=== PATIENT | male | born 1970 | race Caucasian/White ===

== ENCOUNTER 2021-08-24 15:39 | Inpatient (IN) | payer OTHER ==
[~2021-08-24] VITALS: Ht 182.9 cm; Wt 109.1 kg
[~2021-08-24 15:39] MED LIST: LIDO700A32 TOP; PER10325T PO
[2021-08-24 18:08] LABS: BASOPHILS # (AUTO) 0.1 X10'3 (0-0.2); BASOPHILS % (AUTO) 0.6 % (0-1); EOSINOPHILS % (AUTO) 0 % (0-6); HEMATOCRIT 48.5 % (42.0-52.0); LYMPHOCYTES # (AUTO) 0.5 X10'3 (1.1-4.8); LYMPHOCYTES % (AUTO) 3.1 % (21-51); MEAN CORPUSCULAR HEMOGLOBIN 32.8 PG (27.0-31.0); MEAN CORPUSCULAR VOLUME 93.7 FL (78-98); MEAN PLATELET VOLUME 8.5 FL (7.4-10.4); MONOCYTES # (AUTO) 0.7 X10'3 (0-0.9); MONOCYTES % (AUTO) 4.2 % (2-12); NEUTROPHILS # (AUTO) 15.9 X10'3 (1.8-7.7); NEUTROPHILS % (AUTO) 92.1 % (42-75); PLATELET COUNT 307 X10'3 (140-440); RED BLOOD COUNT 5.18 X10'6 (4.70-6.10); WHITE BLOOD COUNT 17.3 X10'3 (4.5-11.0)
[2021-08-24 18:26] LABS: ALANINE AMINOTRANSFERASE 48 U/L (12-78); ALKALINE PHOSPHATASE 111 IU/L (46-116); ANION GAP 15 (8-16); ASPARTATE AMINO TRANSFERASE 22 U/L (10-37); BILIRUBIN,TOTAL 1.4 MG/DL (0.1-1.0); BLOOD UREA NITROGEN 15 MG/DL (7-18); BUN/CREATININE RATIO 13.9 (5.4-32.0); CALCIUM 9.7 MG/DL (8.5-10.1); CHLORIDE 102 MMOL/L (99-107); CREATININE 1.08 MG/DL (0.60-1.10); GLUCOSE 136 MG/DL (70-104); LIPASE 55 U/L (73-393); POTASSIUM 3.3 MMOL/L (3.5-5.1); SODIUM 139 MMOL/L (135-145); TOTAL CARBON DIOXIDE 22.1 MMOL/L (24-32); TOTAL PROTEIN 8.1 G/DL (6.4-8.2); eGFR 72 ML/MIN
[2021-08-24] MEDS ORDERED: KETAMINE IV ONE (20:05)
[2021-08-24] MEDS ORDERED: HYDROmorphone 1 mg/ml syringe IV ONE (20:05)
[2021-08-24] MEDS ORDERED: NORMAL SALINE IV ONE (20:05)
[2021-08-24] MEDS ORDERED: ondansetron/PF 4mg/2ml inj IV ONE (20:05)
[2021-08-24] MEDS ORDERED: metroNIDAZOLE-Flagyl 500mg/NS 100 ML IV STA (20:22)
[2021-08-24] MEDS ORDERED: potassium Cl 20 mEq SR tablet PO PRN (20:45)
[2021-08-24] MEDS ORDERED: acetaminophen 325mg tablet PO PRN ×2 (20:45)
[2021-08-24] MEDS ORDERED: magnesium 4gm in 100ml NS 100 ML IV PRN (20:45)
[2021-08-24] MEDS ORDERED: magnesium 2GM in 50ml NS 50 ML IV PRN (20:45)
[2021-08-24] MEDS ORDERED: morphine 2 MG/ML inj. syringe IV PRN (20:45)
[2021-08-24] MEDS ORDERED: potassium CL 10mEq/100ml bag 100 ML IV PRN (20:45)
[2021-08-24] MEDS ORDERED: HYDROcodone/acetaminophen 5mg/325mg tablet PO PRN (20:45)
[2021-08-24] MEDS ORDERED: magnesium Cl slow-release 64mg tablet PO PRN (20:45)
[2021-08-24] MEDS ORDERED: LORazepam 2 mg/ml vial IV PRN (20:55)
[2021-08-24] MEDS: nicotine 14mg patch - 24hr TD SCH (20:55)
[2021-08-24] MEDS ORDERED: LORazepam 1 MG tablet PO PRN (20:55)
[2021-08-24] MEDS ORDERED: temazepam 15mg capsule PO PRN (21:00)
[2021-08-24] MEDS: ciprofloxacin lact 400MG/200ML 200 ML IV SCH (21:37)
[2021-08-24] MEDS: normal saline 1000ml 1,000 ML IV SCH (21:42)
[2021-08-24] MEDS ORDERED: NO HOME MEDS (23:12)
[2021-08-24] MEDS: metroNIDAZOLE-Flagyl 500mg/NS 100 ML IV SCH (23:20)
[2021-08-24] MEDS: heparin, porcine 5000 units/ml vial SQ SCH (23:24)
[2021-08-24] MEDS: atenolol 50mg tablet PO SCH (23:25)
[2021-08-24] MEDS: HYDROcodone/acetaminophen 10/325mg tab PO PRN (23:25)
[2021-08-25] MEDS: ondansetron/PF 4mg/2ml inj IV PRN ×2 (01:52→15:22)
[2021-08-25] MEDS: morphine 2 MG/ML inj. syringe IV PRN ×4 (01:53→20:32)
[2021-08-25] MEDS: normal saline 1000ml 1,000 ML IV SCH ×2 (06:57→23:09)
[2021-08-25] MEDS: K and/or MAG REPLACEMENT MC SCH ×2 (08:00→20:33)
[2021-08-25] MEDS ORDERED: ciprofloxacin lact 400MG/200ML 200 ML IV SCH (08:00)
[2021-08-25] MEDS: nicotine 14mg patch - 24hr TD SCH (08:00)
[2021-08-25] MEDS: atenolol 50mg tablet PO SCH (08:23)
[2021-08-25] MEDS: metroNIDAZOLE-Flagyl 500mg/NS 100 ML IV SCH ×2 (08:23→16:13)
[2021-08-25] MEDS: heparin, porcine 5000 units/ml vial SQ SCH ×2 (08:24→16:19)
[2021-08-25 09:01] LABS: BASOPHILS # (AUTO) 0.1 X10'3 (0-0.2); BASOPHILS % (AUTO) 0.4 % (0-1); EOSINOPHILS % (AUTO) 0 % (0-6); HEMATOCRIT 40.9 % (42.0-52.0); LYMPHOCYTES # (AUTO) 0.9 X10'3 (1.1-4.8); LYMPHOCYTES % (AUTO) 5.7 % (21-51); MEAN CORPUSCULAR HEMOGLOBIN 32.4 PG (27.0-31.0); MEAN CORPUSCULAR HGB CONC 34.2 g/dL (33.0-36.5); MEAN CORPUSCULAR VOLUME 94.7 FL (78-98); MEAN PLATELET VOLUME 8.3 FL (7.4-10.4); MONOCYTES # (AUTO) 0.8 X10'3 (0-0.9); MONOCYTES % (AUTO) 5.1 % (2-12); NEUTROPHILS # (AUTO) 14.4 X10'3 (1.8-7.7); NEUTROPHILS % (AUTO) 88.8 % (42-75); PLATELET COUNT 269 X10'3 (140-440); RED BLOOD COUNT 4.32 X10'6 (4.70-6.10); RED CELL DISTRIBUTION WIDTH 14.1 % (11.5-14.5); WHITE BLOOD COUNT 16.2 X10'3 (4.5-11.0)
[2021-08-25 09:21] LABS: ALANINE AMINOTRANSFERASE 38 U/L (12-78); ALBUMIN 2.9 G/DL (3.4-5.0); ALBUMIN/GLOBULIN RATIO 0.7 (1.1-1.5); ALKALINE PHOSPHATASE 78 IU/L (46-116); ANION GAP 10 (8-16); ASPARTATE AMINO TRANSFERASE 18 U/L (10-37); BILIRUBIN,TOTAL 0.9 MG/DL (0.1-1.0); BLOOD UREA NITROGEN 14 MG/DL (7-18); BUN/CREATININE RATIO 14.1 (5.4-32.0); CALCIUM 8.1 MG/DL (8.5-10.1); CHLORIDE 106 MMOL/L (99-107); CREATININE 0.99 MG/DL (0.60-1.10); GLUCOSE 128 MG/DL (70-104); POTASSIUM 3.2 MMOL/L (3.5-5.1); SODIUM 141 MMOL/L (135-145); TOTAL CARBON DIOXIDE 25.3 MMOL/L (24-32); TOTAL PROTEIN 6.8 G/DL (6.4-8.2); eGFR 80 ML/MIN
[2021-08-25] MEDS: ciprofloxacin lact 400MG/200ML 200 ML IV SCH ×2 (09:26→20:32)
[2021-08-25] MEDS: potassium Cl 20 mEq SR tablet PO PRN ×3 (09:33→20:32)
[2021-08-25] MEDS: HYDROcodone/acetaminophen 10/325mg tab PO PRN ×2 (10:38→17:53)
[2021-08-25 11:03] LABS: CLARITY,URINE CLEAR (Clear); GLUCOSE, URINE NEGATIVE (Neg); KETONES,URINE TRACE mg/dl (Neg); LEUKOCYTE ESTERASE ,URINE NEGATIVE (Neg); NITRITES, URINE NEGATIVE (Neg); OCCULT BLOOD,URINE NEGATIVE (Neg); PH,URINE 5.5 (4.8-8.0); PROTEIN,URINE 30 mg/dl (Neg); UROBILINOGEN,URINE 0.2 E.U/dL (0.2-1.0)
[2021-08-25 11:12] LABS: COLOR,URINE DARK YELLOW (Yellow); UA COLLECTION TYPE URINAL
[2021-08-25 11:14] LABS: AMORPHOUS URATES 1+; BACTERIA,URINE NONE SEEN /HPF (Neg); HYALINE CASTS 0-3 /LPF (NEGATIVE); MUCUS STRANDS MANY /LPF (Neg); RBC,URINE NONE SEEN /HPF (0-2); SQUAMOUS EPITHELIAL CELL,UR FEW /LPF (FEW); WBC,URINE NONE SEEN /HPF (0-4)
[2021-08-25] MEDS ORDERED: temazepam 15mg capsule PO PRN (13:40)
[2021-08-25 16:30] VITALS: BP 117/71
[2021-08-25 18:00] VITALS: BP 122/77
--- NOTE | 2021-08-25 18:20 | NUR ---
Problems reprioritized. Patient report given, questions answered & plan of care reviewed with Erin RN.
[2021-08-25] MEDS: mag hydrox/Alum hydrox/simeth 30ml oral suspension PO PRN (21:24)
[2021-08-25 22:00] VITALS: BP 113/54
[2021-08-26] VITALS (13 sets, daily range): BP systolic 108–148; BP diastolic 60–90
[2021-08-26] MEDS: heparin, porcine 5000 units/ml vial SQ SCH ×3 (00:09→16:00)
[2021-08-26] MEDS: metroNIDAZOLE-Flagyl 500mg/NS 100 ML IV SCH ×3 (00:09→17:33)
[2021-08-26] MEDS ORDERED: morphine 2 MG/ML inj. syringe IV ONE (01:45)
[2021-08-26] MEDS ORDERED: naloxone 0.4 mg/ml inj IV PRN ×3 (01:45→21:40)
[2021-08-26] MEDS ORDERED: normal saline 1000ml 1,000 ML IV SCH (01:45)
[2021-08-26] MEDS ORDERED: morphine/NS 1 mg/ml 50ml CADD 50 ML IV SCH ×2 (01:45→03:00)
[2021-08-26] MEDS ORDERED: CADD PCA waste documentation MC PRN ×2 (01:45→04:55)
--- NOTE | 2021-08-26 02:58 | NUR ---
I medicated him for pain (03/18) with Morphine 2mg IV at 2031 and 44. At 129 he c/o severe sharp left lower abd pain radiating up under the left ribs. He also converted from Sinus Rythm to Afib on the monitor at 129. I called Dr. Latham and notified him of the same. He gave orders for another dose of Morphine 2mg IV now and to start Morphine PIZZA DRIVER pump. At the start of the shift his abdomen was distended, firm, tender, with diminished bowel sounds in all 4 quadrants. At 44 and 129, his abdomen remains distended, but slightly softer than previous, with diminished bowel sounds in all 4 quadrants He did report passing minimal gas I discussed with Guicho at the start of the shift the plan for him to be NPO after midnight in the event he needed to have surgery in the am. NPO status was reinforced to him
[2021-08-26] MEDS: morphine/NS 1 mg/ml 50ml CADD 50 ML IV SCH ×4 (05:22→17:00)
--- NOTE | 2021-08-26 06:30 | NUR ---
Change of shift report given to Shailesh MCCORMICK Addendum: 08/26/21 at 0717 by Erin Brown RN Amended: Links added.
[2021-08-26 06:36] LABS: BASOPHILS % (AUTO) 0.2 % (0-1); EOSINOPHILS % (AUTO) 0.1 % (0-6); HEMOGLOBIN 14.5 g/dl (14.0-17.9); MEAN CORPUSCULAR HEMOGLOBIN 32.7 PG (27.0-31.0); MEAN CORPUSCULAR HGB CONC 33.8 g/dL (33.0-36.5); MEAN CORPUSCULAR VOLUME 96.7 FL (78-98); MEAN PLATELET VOLUME 8.7 FL (7.4-10.4); MONOCYTES # (AUTO) 0.7 X10'3 (0-0.9); MONOCYTES % (AUTO) 5.1 % (2-12); NEUTROPHILS # (AUTO) 12.5 X10'3 (1.8-7.7); NEUTROPHILS % (AUTO) 87.6 % (42-75); PLATELET COUNT 269 X10'3 (140-440); RED BLOOD COUNT 4.44 X10'6 (4.70-6.10); RED CELL DISTRIBUTION WIDTH 14.2 % (11.5-14.5); WHITE BLOOD COUNT 14.3 X10'3 (4.5-11.0)
[2021-08-26 06:51] LABS: ALANINE AMINOTRANSFERASE 32 U/L (12-78); ALBUMIN 2.7 G/DL (3.4-5.0); ALBUMIN/GLOBULIN RATIO 0.6 (1.1-1.5); ALKALINE PHOSPHATASE 83 IU/L (46-116); ANION GAP 13 (8-16); ASPARTATE AMINO TRANSFERASE 20 U/L (10-37); BILIRUBIN,TOTAL 0.8 MG/DL (0.1-1.0); BLOOD UREA NITROGEN 12 MG/DL (7-18); CALCIUM 8.2 MG/DL (8.5-10.1); CHLORIDE 105 MMOL/L (99-107); GLUCOSE 107 MG/DL (70-104); POTASSIUM 3.5 MMOL/L (3.5-5.1); SODIUM 141 MMOL/L (135-145); TOTAL CARBON DIOXIDE 22.6 MMOL/L (24-32); eGFR 79 ML/MIN
[2021-08-26] MEDS: ciprofloxacin lact 400MG/200ML 200 ML IV SCH ×2 (07:50→20:00)
[2021-08-26] MEDS: K and/or MAG REPLACEMENT MC SCH ×2 (07:50→20:00)
[2021-08-26] MEDS: atenolol 50mg tablet PO SCH (07:51)
[2021-08-26] MEDS: nicotine 14mg patch - 24hr TD SCH (07:52)
[2021-08-26] MEDS ORDERED: iohexol 300mg/ml 100ml inj. ONE (10:53)
[2021-08-26] MEDS: normal saline 1000ml 1,000 ML IV SCH ×3 (12:45→22:45)
[2021-08-26] MEDS ORDERED: ondansetron/PF 4mg/2ml inj IV PRN (14:30)
[2021-08-26] MEDS ORDERED: labetalol 20mg/4ml (5mg/ml) syringe IV PRN (14:30)
[2021-08-26] MEDS ORDERED: ringers solution, lacted 1,000 ML IV SCH (14:30)
[2021-08-26] MEDS ORDERED: hydrALAZINE 20mg/ml inj. IV PRN (14:30)
[2021-08-26] MEDS ORDERED: morphine 4 MG/ML inj SYRINge IV PRN (14:30)
[2021-08-26] MEDS ORDERED: fentaNYL/PF 50MCG/1 ML 2ML syringe IV PRN ×2 (14:30)
[2021-08-26] MEDS ORDERED: morphine 2 MG/ML inj. syringe IV PRN (14:30)
[2021-08-26] MEDS ORDERED: midazolam 1 mg/ML 2ml injection ONE (18:48)
[2021-08-26] MEDS ORDERED: fentaNYL/PF 50MCG/1 ML 2ML syringe ONE ×3 (18:48→20:20)
[2021-08-26] MEDS ORDERED: BUPIVAcaine/PF 2.5 mg/ml (0.25%) 30ml vial ONE (18:55)
[2021-08-26] MEDS ORDERED: LIDOcaine 1% 30ml preserv. free vial ONE (18:56)
[2021-08-26] MEDS ORDERED: propofol inj 20 ML IV ONE (19:07)
[2021-08-26] MEDS ORDERED: LIDOcaine 2% (20mg/ml) 5ml vial ONE (19:07)
[2021-08-26] MEDS ORDERED: rocuronium 10mg/ml inj IV ONE ×3 (19:08→20:21)
[2021-08-26] MEDS ORDERED: ondansetron/PF 4mg/2ml inj ONE (19:09)
[2021-08-26] MEDS ORDERED: labetalol 20mg/4ml (5mg/ml) syringe IV ONE (19:51)
[2021-08-26] MEDS ORDERED: INDOCYANINE GREEN 25 MG/10 ML VIAL IV ONE (20:32)
[2021-08-26] MEDS: HYDROmorph./NS 0.2 mg/ml CADD 100 ML IV SCH ×2 (21:40→23:00)
--- NOTE | 2021-08-26 21:42 | NUR ---
Received from OR via , accompanied by Anesthesiologist DR. RIOS and report given by Anesthesiolgist AND OR NURSE. PT ARRIVED AWAKE ON 10L O2 VIA MASK WITH 02 SAT AT 89%. PT HAS LR RUNNING TO 18G IV TO RIGHT WRIST. 4 ABD BANDAID SITES NOTED C/D/I. RYLAN DRAIN DRAINING BLOOD TINGED FLUID. NEW COLOSTOMY BAG SECURE. SMITH CATHETER DRAINING TO GRAVITY WITH YELLOW URINE. WILL CONTINUE TO MONITOR. Addendum: 08/26/21 at 2203 by Enid Alberto RN Amended: Links added.
--- NOTE | 2021-08-26 23:02 | NUR ---
PATIENT HAS MET ALL CRITERIA FOR TRANSFER TO THE PCU FLOOR. VSS. TRANSPORTED PT ON 3L 02 VIA NC AND TELE MONITOR. DRESSINGS AND DRAINS INTACT. BED LOW, CALL LIGHT PRESENT AND 2 RAILS UP. ANNY HERNÁNDEZ PRESENT TO ACCEPT CARE OF PATIENT AND REPORT HAS BEEN CALLED. ALL QUESTIONS ANSWERED TO ACCEPTING RN. Addendum: 08/26/21 at 2307 by Enid Alberto RN Amended: Links added.
--- NOTE | 2021-08-26 23:30 | NUR ---
Patient in room PCU 3018. I have received report from Enid MCCORMICK and had the opportunity to ask questions and assume patient care. Received pt status post Laparoscopic sigmoid colectomy with blood pressure at 136/78 and with O2 sat of 90 on 4 L Nasal Cannula. Pt in stable condition.
[2021-08-27] VITALS (13 sets, daily range): BP systolic 119–155; BP diastolic 74–88
[2021-08-27] MEDS: metroNIDAZOLE-Flagyl 500mg/NS 100 ML IV SCH ×4 (00:48→23:37)
[2021-08-27] MEDS: HYDROmorph./NS 0.2 mg/ml CADD 100 ML IV SCH ×12 (01:00→23:00)
[2021-08-27 06:21] LABS: BASOPHILS % (AUTO) 0.1 % (0-1); EOSINOPHILS % (AUTO) 0 % (0-6); HEMOGLOBIN 12.9 g/dl (14.0-17.9); LYMPHOCYTES # (AUTO) 0.4 X10'3 (1.1-4.8); LYMPHOCYTES % (AUTO) 3.1 % (21-51); MEAN CORPUSCULAR HEMOGLOBIN 32.6 PG (27.0-31.0); MEAN CORPUSCULAR HGB CONC 33.8 g/dL (33.0-36.5); MEAN CORPUSCULAR VOLUME 96.3 FL (78-98); MEAN PLATELET VOLUME 8.6 FL (7.4-10.4); MONOCYTES # (AUTO) 0.5 X10'3 (0-0.9); MONOCYTES % (AUTO) 4.5 % (2-12); NEUTROPHILS # (AUTO) 10.9 X10'3 (1.8-7.7); NEUTROPHILS % (AUTO) 92.3 % (42-75); PLATELET COUNT 273 X10'3 (140-440); RED BLOOD COUNT 3.95 X10'6 (4.70-6.10); RED CELL DISTRIBUTION WIDTH 14.4 % (11.5-14.5); WHITE BLOOD COUNT 11.8 X10'3 (4.5-11.0)
--- NOTE | 2021-08-27 06:35 | NUR ---
Problems reprioritized. Patient report given, questions answered & plan of care reviewed with Mary MCCORMICK.
[2021-08-27 07:01] LABS: ALANINE AMINOTRANSFERASE 32 U/L (12-78); ALBUMIN 2.2 G/DL (3.4-5.0); ALBUMIN/GLOBULIN RATIO 0.5 (1.1-1.5); ALKALINE PHOSPHATASE 73 IU/L (46-116); ANION GAP 12 (8-16); ASPARTATE AMINO TRANSFERASE 22 U/L (10-37); BILIRUBIN,TOTAL 0.4 MG/DL (0.1-1.0); BLOOD UREA NITROGEN 13 MG/DL (7-18); BUN/CREATININE RATIO 12.7 (5.4-32.0); CALCIUM 7.8 MG/DL (8.5-10.1); CHLORIDE 106 MMOL/L (99-107); CREATININE 1.02 MG/DL (0.60-1.10); GLUCOSE 148 MG/DL (70-104); POTASSIUM 3.8 MMOL/L (3.5-5.1); SODIUM 141 MMOL/L (135-145); TOTAL PROTEIN 6.5 G/DL (6.4-8.2); eGFR 77 ML/MIN
[2021-08-27] MEDS: atenolol 50mg tablet PO SCH (07:29)
[2021-08-27] MEDS: enoxaparin 40mg/0.4ml syringe SQ SCH (07:30)
[2021-08-27] MEDS: ciprofloxacin lact 400MG/200ML 200 ML IV SCH ×2 (07:31→19:49)
[2021-08-27] MEDS: nicotine 14mg patch - 24hr TD SCH (07:40)
[2021-08-27] MEDS: K and/or MAG REPLACEMENT MC SCH ×2 (08:00→19:53)
--- NOTE | 2021-08-27 10:38 | NUR ---
OSTOMY FACTS: Almost everyone has know of, or met, businessmen, entertainers, athletes, and people from all walks of life who have an ostomy. Ostomates (a person that has an ostomy) can ski, ride horses, bowl, and get healthy exercise in countless ways. Your usual activities of daily living can be resumed as soon as you are able. Gradually you will be able to wear the clothes worn before surgery. With modern pouches, nothing is noticeable under your clothing. It may be difficult at first to believe that an intimate relationship can be possible when one's body has been disfigured by surgery. This is not true. Love, fortunately, is not easily destroyed when it is based on genuine appreciation of a person as a thinking, feeling, reacting human being. AN OSTOMY IS NOT AN IMPAIRMENT!! DEFINITIONS: 1.OSTOMY: An opening that is created by a surgical procedure. The opening is called a "stoma". 2.STOMA: A surgical opening in the abdomen (belly) where intestine is brought through the abdominal wall and connected at the skin level. A stoma is shiny, wet and at first is dark purple but eventually turns pink, similar to the inside lining of your mouth. 3.COLON: A portion of the large bowel. 4.COLOSTOMY: A fecal diversion with an opening, (stoma) created anywhere along the colon. Making a connection between the colon and the abdominal wall. 5.ILLEOSTOMY: A fecal diversion with an opening, (stoma) created in the small intestine. Making a connection between the small intestine and the abdominal wall. 6.UROSTOMY: A urinary diversion with the ureters connected to a segment of the small bowel and one end is brought out and connected to the abdominal wall, creating a stoma. SHAPES and SIZES: "The stoma is usually round or oval. "It is anywhere from a dime to half dollar in size. "A stoma reaches its permanent size 6-8 weeks after surgery. PRODUCTS: 1.POUCH or APPLIANCE: An external device to contain stool or urine output and protect the skin around the stoma. It can be a one piece pouch or two pieces (a pouch and a wafer). 2.BARRIER: Substance that is used to protect the skin around the stoma from drainage and adhesive. 3.SKIN PREP or SEALANT: Product applied to the skin to reduce injury from moisture, drainage, or repeated pouch removal. Available in spray or wipes. 4.CLOSURE or CLAMP: A device used to close the bottom of a drainable pouch. 5.BRIDGE or MERRILL: A piece of plastic placed under a loop of bowel on the skins surface, to secure the bowel in place while the skin heals. POUCH CHANGE PROCEEDURE: 1.Assemble all the supplies "1 or 2 piece appliance "Ostomy paste (if needed) "Ostomy powder (if needed) "Skin prep wipes ( not recommended with coloplast products) "Moist wash cloth or cotton balls 2.Remove plastic center and paper backing from pouch. If pouch or wafer is not precut, use the sizing guide, or plastic backing from pouch to make a pattern. Do this by placing the paper over the stoma and trace it, or draw a pattern. Cut the wafer to fit and set it aside. 3.Remove old pouch by lifting up on tape while pressing skin down away from the tape. If there is a clip on your pouch, remove it and save it. 4.Clean skin or stoma with moistened wash cloth or cotton balls. Place a clean cotton ball over stoma hole to catch any drainage. Let skin dry. 5.For grooves or uneven areas in the skin- apply ostomy paste and sprinkle with ostomy powder, then gently shape the past so the area around the stoma is smooth and as flat as possible. Wipe off or blow away excess. Blot powder with skin prep wipe (DO NOT wipe powder). Let dry until no longer sticky. 6.For irritated or reddened skin- sprinkle ostomy powder on red or irritated area. Wipe off or blow away excess. Blot powder with skin prep wipe (DO NOT wipe powder). Let dry until no longer sticky. 7.Apply skin prep wipe to skin to which the pouch and tape will adhere. Let dry until no longer sticky. 8.If you have a one piece appliance- apply pouch so it is centered around the stoma. No skin should be exposed to stool. All skin should be covered by paste or pouch. 9.If you have a two piece appliance- Apply the wafer as described above, then snap or stick pouch onto wafer. Check to make sure wafer and pouch are securely connected. 10.Place clip on bottom of pouch. 11.Empty pouch when 1/3 full. OSTOMY SKIN CARE: "Good health care and nutrition are essential for healthy skin. "Usually a correct pouch size will prevent skin breakdown. "Use warm water and soap for skin cleansing. "Do not use creams or oil based products on skin around the stoma. This will prevent the appliance from sticking. "Use skin prep around the stoma. IT CAN TAKE 24 HOURS TO SEVERAL DAYS FOR SKIN TO HEAL. IF IT IS NOT RESOLVING, OR GETTING WORSE, CALL YOUR PRIMARY CARE DOCTOR. WOUND INFECTION EDUCATION PROVIDED BY WOUND CARE 1. Patient instructed to call their primary doctor, or go the ED immediately if any of the following symptoms occur: * Increased pain in wound * Increase in drainage from the wound * Redness in the skin surrounding the wound * Warmth in the skin surrounding the wound * Bleeding from the wound * Temperature of 101 or greater 2. If any of these occur while in the hospital tell a nurse immediately. PRESSURE ULCER EDUCATION: DEFINITION: A pressure ulcer is an area of skin that breaks down when you stay in one position too long. The constant pressure against the skin reduces the blood flow to that area and the affected tissue dies. CAUSES: "Being bedridden or in a wheelchair "Fragile skin "Having a chronic condition, such as diabetes or vascular disease "Inability to move certain parts of your body without assistance "Older age "Incontinence of urine or stool SYMPTOMS: "A reddened area that DOES NOT turn white when pressed on - this can be the beginning of a pressure ulcer "A blister, deep sore or a crater - these can be advanced pressure ulcers FIRST AID: "Relieve the pressure on this area "Keep the area clean and dry "Call your primary doctor if you see any of the above symptoms "DO NOT massage the area "DO NOT use a donut shaped or ring shaped pillow- these actually interfere with the blood flow and cause complications PREVENTION: "Check for pressure ulcers everyday "Change position at least every two hours to relieve pressure "Use items that help relieve pressure- pillows, sheepskin, foam padding, and powders. "Keep skin clean and dry "Eat healthy well balanced meals "Exercise daily IF YOU SEE ANY OF THESE SYMPTOMS WHILE IN THE HOSPITAL - TELL YOUR NURSE IMMEDIATELY. IF YOU SEE ANY OF THESE SYMPTOMS WHILE AT HOME OR HAVE ANY QUESTIONS OR CONCERNS ABOUT PRESSURE ULCERS - CALL YOUR PRIMARY DOCTOR IMMEDIATELY. Addendum: 08/27/21 at 1039 by Myra Abdul RN Amended: Links added.
[2021-08-27] MEDS: normal saline 1000ml 1,000 ML IV SCH ×2 (14:10→18:45)
--- NOTE | 2021-08-27 14:35 | NUR ---
TRANSFER ORDERS FOR SURGICAL WITHOUT TELEMETRY PUT IN PER DR. HOLCOMB.
[2021-08-27] MEDS: mag hydrox/Alum hydrox/simeth 30ml oral suspension PO PRN ×2 (15:32→23:31)
[2021-08-27] MEDS: ondansetron/PF 4mg/2ml inj IV PRN ×2 (15:41→23:33)
--- NOTE | 2021-08-27 19:00 | NUR ---
pt requested to remove his Paz, and stated the surgeon told him to ask the nurse to remove it.; Paz discontinue, urinal given.
[2021-08-28] VITALS: BP 152/91
[2021-08-28] MEDS: HYDROmorph./NS 0.2 mg/ml CADD 100 ML IV SCH ×12 (01:00→23:00)
[2021-08-28] MEDS: normal saline 1000ml 1,000 ML IV SCH ×2 (04:45→15:15)
--- NOTE | 2021-08-28 06:42 | NUR ---
Report given to ANNY Schofield.
[2021-08-28 06:44] LABS: BASOPHILS % (AUTO) 0.2 % (0-1); EOSINOPHILS % (AUTO) 0.1 % (0-6); HEMATOCRIT 40.7 % (42.0-52.0); HEMOGLOBIN 13.7 g/dl (14.0-17.9); LYMPHOCYTES # (AUTO) 0.8 X10'3 (1.1-4.8); LYMPHOCYTES % (AUTO) 7.3 % (21-51); MEAN CORPUSCULAR HEMOGLOBIN 32.5 PG (27.0-31.0); MEAN CORPUSCULAR HGB CONC 33.6 g/dL (33.0-36.5); MEAN CORPUSCULAR VOLUME 96.9 FL (78-98); MEAN PLATELET VOLUME 8.2 FL (7.4-10.4); MONOCYTES # (AUTO) 0.9 X10'3 (0-0.9); MONOCYTES % (AUTO) 7.7 % (2-12); NEUTROPHILS # (AUTO) 9.6 X10'3 (1.8-7.7); NEUTROPHILS % (AUTO) 84.7 % (42-75); PLATELET COUNT 329 X10'3 (140-440); RED BLOOD COUNT 4.21 X10'6 (4.70-6.10); RED CELL DISTRIBUTION WIDTH 14.6 % (11.5-14.5); WHITE BLOOD COUNT 11.3 X10'3 (4.5-11.0)
[2021-08-28 06:55] LABS: ALANINE AMINOTRANSFERASE 25 U/L (12-78); ALBUMIN/GLOBULIN RATIO 0.5 (1.1-1.5); ALKALINE PHOSPHATASE 66 IU/L (46-116); ANION GAP 7 (8-16); ASPARTATE AMINO TRANSFERASE 19 U/L (10-37); BILIRUBIN,TOTAL 0.3 MG/DL (0.1-1.0); BLOOD UREA NITROGEN 16 MG/DL (7-18); BUN/CREATININE RATIO 17.8 (5.4-32.0); CALCIUM 7.6 MG/DL (8.5-10.1); CHLORIDE 107 MMOL/L (99-107); GLUCOSE 128 MG/DL (70-104); POTASSIUM 3.6 MMOL/L (3.5-5.1); SODIUM 141 MMOL/L (135-145); TOTAL CARBON DIOXIDE 27.5 MMOL/L (24-32); TOTAL PROTEIN 5.9 G/DL (6.4-8.2); eGFR 89 ML/MIN
[2021-08-28 08:00] VITALS: BP 132/92
[2021-08-28] MEDS: K and/or MAG REPLACEMENT MC SCH ×2 (08:00→20:00)
[2021-08-28] MEDS: nicotine 14mg patch - 24hr TD SCH (08:00)
[2021-08-28] MEDS: enoxaparin 40mg/0.4ml syringe SQ SCH (08:49)
[2021-08-28] MEDS: metroNIDAZOLE-Flagyl 500mg/NS 100 ML IV SCH ×2 (08:49→16:17)
[2021-08-28] MEDS: atenolol 50mg tablet PO SCH (08:50)
[2021-08-28] MEDS: ondansetron/PF 4mg/2ml inj IV PRN (09:01)
[2021-08-28] MEDS ORDERED: ciprofloxacin 250mg tablet PO SCH (10:00)
[2021-08-28 12:00] VITALS: BP 129/85
[2021-08-28] MEDS ORDERED: ciprofloxacin lact 400MG/200ML 200 ML IV SCH (12:46)
[2021-08-28] MEDS: ciprofloxacin 250mg tablet PO SCH ×3 (12:56→21:56)
--- NOTE | 2021-08-28 13:04 | NUR ---
called pharmacy for patients CIPRO and they informed me THAT cipro IS ON BACK ORDER AND pharmacist is switching to something else
--- NOTE | 2021-08-28 14:04 | NUR ---
Initial: Pt admit for diverticulitis with possible peritonitis secondary to perforated diverticulitis. Pt POD #2 s/p sigmoid colectomy with end colostomy formation. Patient's diet has been advanced to clear liquids, documented with mostly 25% PO intake up to 100% PO intake at breakfast this morning. Unable to meet estimated nutrient needs in view of current diet order. Recommend advancing to low fiber diet as medically indicated. IF expected prolonged return of bowel function and unable to advance PO diet pt would benefit from nutrition support. No documented BM since colostomy formation. Will continue to follow closely and make recommendations as appropriate. Recommendations: 1) Advance to low fiber diet as medically indicated 2) Consider nutrition support if expected prolonged return of bowel function and unable to advance PO diet 3) Bowel care per MD 4) Scaled weight this admit; weekly scaled weights thereafter Addendum: 08/28/21 at [address] Amended: Links added.
--- NOTE | 2021-08-28 15:34 | NUR ---
Arrived in room to educate patient on ostomy supplies, how to drain pouch, cleaning of cuff, peristomal skin issues and will see him tomorrow am to change his pouching system. Provided stoma care handout and described how supplies are obtained when discharge. He has a close friend who was an ostomate and will be a good resource for him. He is attentive and interested in education. Educated him on You Tube videos to watch for visual education prior to am change. He verbalized understanding. Report to his primary nurse provided. Addendum: 08/28/21 at 1537 by Carmita Castano RN Amended: Links added.
[2021-08-28 18:00] VITALS: BP 139/83
[2021-08-28] MEDS: lactobacillus rhamnosus 10,000 MMU CELLS/CAPSULE PO SCH (20:33)
[2021-08-29] VITALS: BP 125/77
[2021-08-29] MEDS: metroNIDAZOLE-Flagyl 500mg/NS 100 ML IV SCH ×4 (00:29→23:34)
[2021-08-29] MEDS: normal saline 1000ml 1,000 ML IV SCH ×4 (00:49→23:34)
[2021-08-29] MEDS: HYDROmorph./NS 0.2 mg/ml CADD 100 ML IV SCH ×12 (01:00→23:00)
[2021-08-29] MEDS: CADD PCA waste documentation MC PRN (06:06)
[2021-08-29 06:15] LABS: BASOPHILS % (AUTO) 0.3 % (0-1); EOSINOPHILS # (AUTO) 0.1 X10'3 (0-0.9); EOSINOPHILS % (AUTO) 1.7 % (0-6); HEMATOCRIT 36.7 % (42.0-52.0); HEMOGLOBIN 12.2 g/dl (14.0-17.9); LYMPHOCYTES # (AUTO) 1.1 X10'3 (1.1-4.8); MEAN CORPUSCULAR HEMOGLOBIN 32.5 PG (27.0-31.0); MEAN CORPUSCULAR HGB CONC 33.4 g/dL (33.0-36.5); MEAN CORPUSCULAR VOLUME 97.4 FL (78-98); MEAN PLATELET VOLUME 8.3 FL (7.4-10.4); MONOCYTES # (AUTO) 0.8 X10'3 (0-0.9); MONOCYTES % (AUTO) 8.8 % (2-12); NEUTROPHILS # (AUTO) 6.7 X10'3 (1.8-7.7); NEUTROPHILS % (AUTO) 76.2 % (42-75); PLATELET COUNT 316 X10'3 (140-440); RED BLOOD COUNT 3.77 X10'6 (4.70-6.10); RED CELL DISTRIBUTION WIDTH 14.7 % (11.5-14.5); WHITE BLOOD COUNT 8.8 X10'3 (4.5-11.0)
[2021-08-29 06:37] LABS: ALANINE AMINOTRANSFERASE 47 U/L (12-78); ALBUMIN 1.9 G/DL (3.4-5.0); ALBUMIN/GLOBULIN RATIO 0.6 (1.1-1.5); ALKALINE PHOSPHATASE 74 IU/L (46-116); ANION GAP 4 (8-16); ASPARTATE AMINO TRANSFERASE 38 U/L (10-37); BILIRUBIN,TOTAL 0.3 MG/DL (0.1-1.0); BLOOD UREA NITROGEN 16 MG/DL (7-18); CALCIUM 7.2 MG/DL (8.5-10.1); CHLORIDE 105 MMOL/L (99-107); CREATININE 0.84 MG/DL (0.60-1.10); GLUCOSE 90 MG/DL (70-104); POTASSIUM 3.6 MMOL/L (3.5-5.1); SODIUM 138 MMOL/L (135-145); TOTAL CARBON DIOXIDE 28.9 MMOL/L (24-32); TOTAL PROTEIN 5.2 G/DL (6.4-8.2); eGFR > 90 ML/MIN
--- NOTE | 2021-08-29 06:41 | NUR ---
Report given to RNKanwal
[2021-08-29 07:27] VITALS: BP 128/85
[2021-08-29] MEDS: enoxaparin 40mg/0.4ml syringe SQ SCH (07:48)
[2021-08-29] MEDS: atenolol 50mg tablet PO SCH (07:49)
[2021-08-29] MEDS: nicotine 14mg patch - 24hr TD SCH (07:49)
[2021-08-29] MEDS: lactobacillus rhamnosus 10,000 MMU CELLS/CAPSULE PO SCH ×2 (07:49→21:48)
[2021-08-29] MEDS: K and/or MAG REPLACEMENT MC SCH ×2 (07:50→20:00)
[2021-08-29 11:24] VITALS: BP 120/75
--- NOTE | 2021-08-29 11:58 | NUR ---
Arrioved in pt's room for ostomy pouch change. Noted to have large amount of brown thick liquid stool in the bag. This was emptied and proceeded to educate him on how to perform crusting technique and why w/ demonstration. Ostomy pouch removed while educating to push skin away from adhesive. Stoma is brick red moist no separation noted, there is no peristomal skin breakdown and the stoma is somewhat flush to skin surface w/ os center. Stoma measures 38 x 51 and placed Jada # [id number]. Pt with return demonstration on how to place pouch to wafer and close the Velcro closure. Provided him with 2 kits to go home as well as stoma powder and skin prep. Spoke with paraplanner and provided list of supplies pt will need to have ordered through DME on discharge if he is not going home with HH. Pt receptive to teaching, bed left in low position, call light and phone with in reach. Dr Beverly in to see pt during visit. Addendum: 08/29/21 at 1212 by Carmita Castano RN Amended: Links added.
[2021-08-29] MEDS: ciprofloxacin 250mg tablet PO SCH ×2 (13:39→22:13)
[2021-08-29 18:00] VITALS: BP 129/76
[2021-08-29] MEDS ORDERED: magnesium hydroxide 30ml (MOM) UD suspension PO ONE (18:50)
[2021-08-29] MEDS: ondansetron/PF 4mg/2ml inj IV PRN (22:12)
[2021-08-30] VITALS: BP 120/74
[2021-08-30] MEDS: HYDROmorph./NS 0.2 mg/ml CADD 100 ML IV SCH ×4 (01:00→07:00)
--- NOTE | 2021-08-30 06:29 | NUR ---
Problems reprioritized. Patient report given, questions answered & plan of care reviewed with Wendi MCCORMICK.
[2021-08-30] MEDS: lactobacillus rhamnosus 10,000 MMU CELLS/CAPSULE PO SCH ×2 (07:47→20:25)
[2021-08-30] MEDS: metroNIDAZOLE-Flagyl 500mg/NS 100 ML IV SCH ×3 (07:47→23:46)
[2021-08-30] MEDS: atenolol 50mg tablet PO SCH (07:57)
[2021-08-30] MEDS: nicotine 14mg patch - 24hr TD SCH (07:58)
[2021-08-30] MEDS: enoxaparin 40mg/0.4ml syringe SQ SCH (07:58)
[2021-08-30 08:00] VITALS: BP 121/74
[2021-08-30] MEDS: K and/or MAG REPLACEMENT MC SCH ×2 (08:00→20:00)
[2021-08-30] MEDS: normal saline 1000ml 1,000 ML IV SCH (08:00)
[2021-08-30] MEDS: ciprofloxacin 250mg tablet PO SCH ×2 (10:00→21:51)
[2021-08-30 12:00] VITALS: BP 116/71
[2021-08-30] MEDS ORDERED: HYDROcodone/acetaminophen 10/325mg tab PO PRN (13:15)
--- NOTE | 2021-08-30 18:26 | NUR ---
Patient in room TRAY 347. I have received report from Kanwal MCCORMICK and had the opportunity to ask questions and assume patient care.
[2021-08-30] MEDS: CADD PCA waste documentation MC PRN (19:23)
[2021-08-30 20:00] VITALS: BP 135/83
[2021-08-30] MEDS: HYDROcodone/acetaminophen 10/325mg tab PO PRN (20:26)
[2021-08-31] VITALS: BP 114/72
--- NOTE | 2021-08-31 06:24 | NUR ---
Problems reprioritized. Patient report given, questions answered & plan of care reviewed with Kanwal MCCORMICK.
[2021-08-31] MEDS: nicotine 14mg patch - 24hr TD SCH (08:00)
[2021-08-31] MEDS: HYDROcodone/acetaminophen 10/325mg tab PO PRN (08:21)
[2021-08-31] MEDS: enoxaparin 40mg/0.4ml syringe SQ SCH (08:21)
[2021-08-31] MEDS: metroNIDAZOLE-Flagyl 500mg/NS 100 ML IV SCH (08:22)
[2021-08-31 08:23] VITALS: BP_SYST 127
[2021-08-31] MEDS: atenolol 50mg tablet PO SCH (08:23)
[2021-08-31] MEDS ORDERED: ATEN50TA41 PO (09:36)
[2021-08-31] MEDS ORDERED: HYDR-3972 PO (09:36)
[2021-08-31] MEDS: ciprofloxacin 250mg tablet PO SCH (10:00)
--- NOTE | 2021-08-31 13:55 | NUR ---
Reassessment: Pt has been advanced to Regular diet 08/[address] is for Low Fiber diet given new colostomy status. Pt w/ previous 100% intake of Clears/Full liquid diet and also w/ 100% intake once diet advanced. Pt noted w/ 1500ml stool output this morning. Provided pt w/ written and verbal colostomy nutrition therapy education w/ RD contact info. Pt receptive of information. Will continue to monitor. Recommendations: 1) Change to Low fiber diet 2) Bowel care per MD 3) Scaled weight this admit; weekly scaled weights thereafter Addendum: 08/31/21 at 135[address] by [address] Amended: Links added.
== END 2021-08-31 14:02 | disposition home or self-care (01) | DRG 329 ==
LOC: ER 15:40 → ED HOLD 20:46 → PCU 3S 08-25 15:58 → SUR 3N 08-27 20:30
PROVIDERS: ADMIT Internal Medicine; ATTEND Internal Medicine
PROC: 0D1N4Z4 Bypass Sigmoid Colon to Cutaneous, Percutaneous Endoscopic Approach (ICD-10-PCS; 2021-08-26)
PROC: 8E0W4CZ Robotic Assisted Procedure of Trunk Region, Percutaneous Endoscopic Approach (ICD-10-PCS; 2021-08-26)
PROC: B4151ZZ Fluoroscopy of Inferior Mesenteric Artery using Low Osmolar Contrast (ICD-10-PCS; 2021-08-26)
PROC: B4141ZZ Fluoroscopy of Superior Mesenteric Artery using Low Osmolar Contrast (ICD-10-PCS; 2021-08-26)
PROC: BW211ZZ Computerized Tomography (CT Scan) of Abdomen and Pelvis using Low Osmolar Contrast (ICD-10-PCS; 2021-08-26)
PROC: 0DBN4ZZ Excision of Sigmoid Colon, Percutaneous Endoscopic Approach (ICD-10-PCS; principal; 2021-08-26 18:40)
DX: K57.20 Diverticulitis of large intestine with perforation and abscess without bleeding (principal); K65.0 Generalized (acute) peritonitis; Z20.822 Contact with and (suspected) exposure to COVID-19; Z66 Do not resuscitate; G89.29 Other chronic pain; D72.829 Elevated white blood cell count, unspecified; E87.6 Hypokalemia; I10 Essential (primary) hypertension; M54.9 Dorsalgia, unspecified; F17.220 Nicotine dependence, chewing tobacco, uncomplicated; Z80.42 Family history of malignant neoplasm of prostate; Z82.49 Family history of ischemic heart disease and other diseases of the circulatory system; Z83.3 Family history of diabetes mellitus; Z88.8 Allergy status to other drugs, medicaments and biological substances; Z72.89 Other problems related to lifestyle
CPT/HCPCS: 96374; 96375; 99285; Z7506; Z7508; 36415; 74176; 74177; 80053; 81001; 83605; 83690; 85025; 87040; 87081; 87635; 93005; 97110; 97116; 97162; A4215; A4421; A4618; C1758; C9803; G0378; J0744; J1170; J1644; J1650; J2250; J2270; J2405; J2704; J3010; J3490; J7030; J7120; Q9967

== ENCOUNTER 2021-09-24 22:56 | Emergency (ER) | payer OTHER ==
[~2021-09-24] VITALS: Ht 182.9 cm; Wt 98.5 kg
[~2021-09-24 22:56] MED LIST changes: +ATEN50TA41 PO; +HYDR-3972 PO; -LIDO700A32 TOP; -PER10325T PO
[2021-09-25] MEDS ORDERED: MUPI22OI30 TOP (00:47)
[2021-09-25] MEDS: mupirocin 2% nasal ointment 1gm UD NS STA (00:52)
[2021-09-25 01:56] LABS: BASOPHILS # (AUTO) 0.1 X10'3 (0-0.2); BASOPHILS % (AUTO) 0.7 % (0-1); EOSINOPHILS # (AUTO) 0.1 X10'3 (0-0.9); EOSINOPHILS % (AUTO) 1.2 % (0-6); HEMATOCRIT 39.7 % (42.0-52.0); HEMOGLOBIN 13.4 g/dl (14.0-17.9); LYMPHOCYTES # (AUTO) 1.4 X10'3 (1.1-4.8); LYMPHOCYTES % (AUTO) 11.9 % (21-51); MEAN CORPUSCULAR HEMOGLOBIN 31.1 PG (27.0-31.0); MEAN CORPUSCULAR HGB CONC 33.8 g/dL (33.0-36.5); MEAN CORPUSCULAR VOLUME 92.2 FL (78-98); MEAN PLATELET VOLUME 8.5 FL (7.4-10.4); MONOCYTES # (AUTO) 1.1 X10'3 (0-0.9); MONOCYTES % (AUTO) 9.1 % (2-12); NEUTROPHILS # (AUTO) 9.2 X10'3 (1.8-7.7); NEUTROPHILS % (AUTO) 77.1 % (42-75); PLATELET COUNT 322 X10'3 (140-440); RED BLOOD COUNT 4.31 X10'6 (4.70-6.10); RED CELL DISTRIBUTION WIDTH 14.3 % (11.5-14.5); WHITE BLOOD COUNT 11.9 X10'3 (4.5-11.0)
[2021-09-25 02:05] LABS: ALANINE AMINOTRANSFERASE 45 U/L (12-78); ALBUMIN 3.6 G/DL (3.4-5.0); ALBUMIN/GLOBULIN RATIO 1.2 (1.1-1.5); ALKALINE PHOSPHATASE 144 IU/L (46-116); ANION GAP 10 (8-16); ASPARTATE AMINO TRANSFERASE 20 U/L (10-37); BILIRUBIN,TOTAL 0.3 MG/DL (0.1-1.0); BLOOD UREA NITROGEN 20 MG/DL (7-18); BUN/CREATININE RATIO 22.5 (5.4-32.0); CALCIUM 8.7 MG/DL (8.5-10.1); CHLORIDE 107 MMOL/L (99-107); CREATININE 0.89 MG/DL (0.60-1.10); GLUCOSE 102 MG/DL (70-104); POTASSIUM 4.2 MMOL/L (3.5-5.1); SODIUM 140 MMOL/L (135-145); TOTAL CARBON DIOXIDE 22.8 MMOL/L (24-32); TOTAL PROTEIN 6.7 G/DL (6.4-8.2); eGFR 90 ML/MIN
[2021-09-25] MEDS: HYDROcodone/acetaminophen 5mg/325mg tablet PO ONE (02:13)
[2021-09-25] MEDS ORDERED: DOXY-11 PO (02:34)
[2021-09-25 02:43] VITALS: BP 135/87
== END 2021-09-25 02:45 | disposition home or self-care (01) ==
LOC: ER 22:56
DX: J34.0 Abscess, furuncle and carbuncle of nose (principal); R22.0 Localized swelling, mass and lump, head; I10 Essential (primary) hypertension; Z95.1 Presence of aortocoronary bypass graft; Z88.6 Allergy status to analgesic agent; Z88.8 Allergy status to other drugs, medicaments and biological substances; Z79.899 Other long term (current) drug therapy
CPT/HCPCS: 36415; 80053; 83735; 85025; 99283

== ENCOUNTER 2022-12-07 21:09 | Emergency (ER) | payer MEDICAID ==
[~2022-12-07] VITALS: Ht 182.9 cm; Wt 115.2 kg
[2022-12-07 22:28] LABS: BASOPHILS # (AUTO) 0.1 X10'3 (0-0.2); BASOPHILS % (AUTO) 1.8 % (0-1); EOSINOPHILS # (AUTO) 0.1 X10'3 (0-0.9); EOSINOPHILS % (AUTO) 1.7 % (0-6); HEMATOCRIT 45.9 % (42.0-52.0); HEMOGLOBIN 15.8 g/dl (14.0-17.9); LYMPHOCYTES # (AUTO) 2.3 X10'3 (1.1-4.8); LYMPHOCYTES % (AUTO) 28.6 % (21-51); MEAN CORPUSCULAR HEMOGLOBIN 32.1 PG (27.0-31.0); MEAN CORPUSCULAR HGB CONC 34.4 g/dL (33.0-36.5); MEAN CORPUSCULAR VOLUME 93.5 FL (78-98); MONOCYTES # (AUTO) 0.4 X10'3 (0-0.9); MONOCYTES % (AUTO) 4.8 % (2-12); NEUTROPHILS # (AUTO) 5.1 X10'3 (1.8-7.7); NEUTROPHILS % (AUTO) 63.1 % (42-75); PLATELET COUNT 296 X10'3 (140-440); RED BLOOD COUNT 4.91 X10'6 (4.70-6.10); RED CELL DISTRIBUTION WIDTH 14.2 % (11.5-14.5); WHITE BLOOD COUNT 8.1 X10'3 (4.5-11.0)
[2022-12-07 22:38] LABS: ALANINE AMINOTRANSFERASE 43 U/L (12-78); ALBUMIN 4.1 G/DL (3.4-5.0); ALBUMIN/GLOBULIN RATIO 1.2 (1.1-1.5); ALKALINE PHOSPHATASE 111 IU/L (46-116); ANION GAP 13 (8-16); ASPARTATE AMINO TRANSFERASE 17 U/L (10-37); BILIRUBIN,TOTAL 0.4 MG/DL (0.1-1.0); BLOOD UREA NITROGEN 11 MG/DL (7-18); BUN/CREATININE RATIO 12.2 (10.0-20.0); CALCIUM 8.3 MG/DL (8.5-10.1); CHLORIDE 105 MMOL/L (99-107); GLUCOSE 107 MG/DL (70-104); POTASSIUM 3.4 MMOL/L (3.5-5.1); SODIUM 140 MMOL/L (135-145); TOTAL CARBON DIOXIDE 22.1 MMOL/L (24-32); TOTAL PROTEIN 7.5 G/DL (6.4-8.2); eGFR 89 ML/MIN
[2022-12-07 22:46] LABS: LIPASE < 50 U/L (73-393)
[2022-12-07] MEDS ORDERED: sulfamethoxazole/trimethoprim DS (800/160mg) tablet PO ONE (23:30)
[2022-12-07] MEDS ORDERED: ondansetron 4mg rapidly disintigrating tab PO ONE (23:30)
[2022-12-07] MEDS ORDERED: SULF1TAB49 PO (23:31)
[2022-12-07 23:43] VITALS: BP 139/94
== END 2022-12-07 23:44 | disposition home or self-care (01) ==
LOC: ER 21:10
DX: L03.311 Cellulitis of abdominal wall (principal); I10 Essential (primary) hypertension; Z88.6 Allergy status to analgesic agent; Z88.1 Allergy status to other antibiotic agents
CPT/HCPCS: 36415; 71045; 80053; 83690; 83880; 84484; 85025; 93005; 99285

== ENCOUNTER 2023-11-22 18:49 | Emergency (ER) | payer MEDICAID ==
[~2023-11-22] VITALS: Ht 182.9 cm; Wt 109.1 kg
[2023-11-22 20:03] LABS: BASOPHILS # (AUTO) 0.1 X10'3 (0-0.2); BASOPHILS % (AUTO) 1.3 % (0-1); EOSINOPHILS # (AUTO) 0.2 X10'3 (0-0.9); EOSINOPHILS % (AUTO) 2.5 % (0-6); HEMATOCRIT 44.4 % (42.0-52.0); HEMOGLOBIN 15.1 g/dl (14.0-17.9); LYMPHOCYTES # (AUTO) 1.6 X10'3 (1.1-4.8); LYMPHOCYTES % (AUTO) 20.2 % (21-51); MEAN CORPUSCULAR HEMOGLOBIN 31.7 PG (27.0-31.0); MEAN CORPUSCULAR HGB CONC 34.1 g/dL (33.0-36.5); MEAN CORPUSCULAR VOLUME 92.8 FL (78-98); MEAN PLATELET VOLUME 8.1 FL (7.4-10.4); MONOCYTES # (AUTO) 0.5 X10'3 (0-0.9); MONOCYTES % (AUTO) 6.2 % (2-12); NEUTROPHILS # (AUTO) 5.7 X10'3 (1.8-7.7); NEUTROPHILS % (AUTO) 69.8 % (42-75); PLATELET COUNT 297 X10'3 (140-440); RED BLOOD COUNT 4.78 X10'6 (4.70-6.10); RED CELL DISTRIBUTION WIDTH 14.6 % (11.5-14.5); WHITE BLOOD COUNT 8.2 X10'3 (4.5-11.0)
[2023-11-22] MEDS ORDERED: iohexol 300mg/ml 100ml inj. ONE (20:16)
[2023-11-22 20:19] LABS: ALANINE AMINOTRANSFERASE 54 U/L (12-78); ALBUMIN 3.7 G/DL (3.4-5.0); ALKALINE PHOSPHATASE 96 IU/L (46-116); ANION GAP 13 (8-16); ASPARTATE AMINO TRANSFERASE 20 U/L (10-37); BILIRUBIN,TOTAL 0.3 MG/DL (0.1-1.0); BLOOD UREA NITROGEN 15 MG/DL (7-18); BUN/CREATININE RATIO 16.5 (10.0-20.0); CALCIUM 7.8 MG/DL (8.5-10.1); CHLORIDE 105 MMOL/L (99-107); CREATININE 0.91 MG/DL (0.60-1.10); GLUCOSE 100 MG/DL (70-104); LIPASE 26 U/L (16-77); POTASSIUM 3.7 MMOL/L (3.5-5.1); SODIUM 139 MMOL/L (135-145); TOTAL CARBON DIOXIDE 21.3 MMOL/L (24-32); TOTAL PROTEIN 7.3 G/DL (6.4-8.2); eCRCL 104 ML/MIN; eGFR 87 ML/MIN
[2023-11-22] MEDS: ondansetron/PF 4mg/2ml inj IV ONE (20:24)
[2023-11-22] MEDS: morphine 2 MG/ML inj. syringe IV ONE (20:24)
[2023-11-22] MEDS: piperacillin/tazo 4.5gm/100ml 100 ML IV ONE (21:00)
[2023-11-22] MEDS: ringers solution, lacted 1,000 ML IV SCH (21:00)
[2023-11-23] MEDS: morphine 4 MG/ML inj SYRINge IV PRN (00:19)
[2023-11-23 00:40] LABS: BILIRUBIN,URINE NEGATIVE (Neg); CLARITY,URINE CLEAR (Clear); COLOR,URINE YELLOW (Yellow); GLUCOSE, URINE NEGATIVE (Neg); KETONES,URINE NEGATIVE (Neg); LEUKOCYTE ESTERASE ,URINE NEGATIVE (Neg); NITRITES, URINE NEGATIVE (Neg); OCCULT BLOOD,URINE NEGATIVE (Neg); PROTEIN,URINE NEGATIVE (Neg); UROBILINOGEN,URINE 0.2 E.U/dL (0.2-1.0)
[2023-11-23 00:44] LABS: UA COLLECTION TYPE URINAL
[2023-11-23] MEDS: LIDOcaine 2% Viscous 15ml cup MM PRN (01:25)
[2023-11-23] MEDS: mag hydrox/Alum hydrox/simeth 30ml oral suspension PO ONE (01:25)
[2023-11-23] MEDS: normal saline 1000ml 1,000 ML IV ONE (01:25)
[2023-11-23] MEDS ORDERED: LANS30CA37 PO (02:18)
[2023-11-23 03:23] VITALS: BP 121/71; PULSE 78; RESP 18; TEMP 97.7; O2SAT 98
== END 2023-11-23 03:27 | disposition home or self-care (01) ==
LOC: ER 18:50
DX: K29.00 Acute gastritis without bleeding (principal); I10 Essential (primary) hypertension; Z88.6 Allergy status to analgesic agent; Z88.1 Allergy status to other antibiotic agents; Z79.899 Other long term (current) drug therapy
CPT/HCPCS: 36415; 74177; 80053; 81003; 83605; 83690; 84484; 85025; 87040; 93005; 96361; 96365; 96366; 96375; 96376; 99285; J2270; J2405; J2543; J3490; J7030; J7120; Q9967

== ENCOUNTER 2025-03-14 16:06 | Inpatient (IN) | payer MEDICAID ==
[~2025-03-14] VITALS: Ht 182.9 cm; Wt 152.0 kg
[~2025-03-14 16:06] MED LIST changes: +LANS30CA37 PO
--- NOTE | 2025-03-14 16:18 | ELECTROCARDIOGRAPH REPORT ---
[facility] Test Date: 2025-03-14 Test Time: 16:12:14 Pat Name: RISSA PORTILLO Department: 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 Reading MD: Dr. Carlos Ragsdale Measurements Intervals Newman Rate: 113 P: 58 CA: 152 QRS: -66 QRSD: 94 T: 34 QT: 342 QTc: 469 Interpretive Statements Sinus tachycardia Left anterior fascicular block Abnormal R-wave progression, late transition Electronically Signed On 03-15-2025 5:47:[address] Carlos Ragsdale Please click the below link to view image of tracing.
[2025-03-14] MEDS: ondansetron/PF 4mg/2ml inj IV ONE (16:28)
--- NOTE | 2025-03-14 16:39 | Physician Documentation ---
History of Present Illness General Chief Complaint: Allergic Reaction Stated Complaint: ALLERGIC REACTION Time Seen by MD: 16:28 Primary Medical Doctor: none History of Present Illness Initial Comments The patient is a 55-year-old male with a history of diverticulitis requiring partial bowel resection who now has a colostomy who presents after an apparent allergic reaction. The patient lives in [place] and developed hives and shortness of breath shortly after eating macaroni salad which he made and had eaten yesterday without any adverse effect. He had also consumed a half a glass of milk out of a container that he drank out of yesterday, as well, without adverse effect. He denies having taken any medications or drugs or any other substances and does not understand how he may have developed an allergic reaction. EMS arrived and administered epinephrine, albuterol and Solu-Medrol. He feels considerably better in the emergency department but still feels that his hands , face and feet are swollen. He also has chronic right knee pain. Medication Reconciliation Allergies: Coded Allergies: ibuprofen (Verified Allergy, Intermediate, blood in stool, 01/24/19) celecoxib (Verified Allergy, Unknown, blood in stool, 01/24/19) Uncoded Allergies: ONIONS (Allergy, Unknown, 01/24/19) Scheduled Atenolol (Atenolol), 50 MG PO DAILY Lansoprazole (Prevacid), 1 CAP PO DAILY Scheduled PRN Hydrocodone Bit/Acetaminophen (Hydrocodon-Acetaminophn 10-325 tablet), 1 TAB PO Q4H PRN for moderate pain 4-6 Past Medical History Past Medical History: Atrial Fibrillation, Hypertension, Diverticulitis Past Surgical History: noncontributory Alcohol Use: None Drug Use: none Lives with: Family Lives In: Home Review of Systems ROS Constitutional: Denies chills, fatigue, fever, weight gain or weight loss. HEENT: Denies hearing loss, sinus pressure or visual changes. Respiratory: Denies cough, shortness of breath or wheezing. Cardiovascular: Denies chest pain, pain while walking (claudication), edema or palpitations. Gastrointestinal: Denies abdominal pain, blood in stool, constipation, diarrhea, heartburn, loss of appetite, nausea or vomiting. Genitourinary: Denies painful urination (dysuria), excessive amount of urine (polyuria) or urinary frequency. Metabolic/Endocrine: Denies cold intolerance, heat intolerance, excessive thirst (polydipsia) or excessive hunger (polyphagia). Neurological: Denies dizziness, extremity numbness, extremity weakness, headaches, seizures or tremors. Psychiatric: Denies anxiety or depression. Integumentary: Denies breast discharge, breast lump, hives, mole change(s), rash or skin lesion. Musculoskeletal: Denies back pain, joint pain, joint swelling or neck pain. Hematologic: Denies easily bleeding, easily bruises, lymphedema or issues with blood clots. Immunologic: Allergic reaction to unknown Physical Exam Physical Exam Vital Signs: Temperature: 98.2, Source: Oral, Heart Rate: 115, Respiratory Rate: 17, BP: 141/82, Pulse Oximetry: 94, Weight: 152.000 Oxygen Flow Rate: 0 Physical Exam Physical Exam Vitals and nursing note reviewed. Constitutional: General: Patient is awake, alert, oriented x 4 in no acute distress and well appearing. Speech is clear and lucid. Appearance: Normal appearance. Patient is not ill-appearing, toxic-appearing or diaphoretic. HENT: Head: Normocephalic and atraumatic. Mouth/Throat: Mouth: Mucous membranes are moist. Pharynx: Oropharynx is clear. Eyes: General: No scleral icterus. Extraocular Movements: Extraocular movements intact. Pupils: Pupils are equal, round, and reactive to light. Neck: Supple, no Kernig or Brudzinski sign. Cardiovascular: Rate and Rhythm: Normal rate and regular rhythm. Heart sounds: No murmur heard. Pulmonary: Effort: No respiratory distress. Breath sounds: No wheezing, rhonchi or rales. Abdominal: General: There is no distension. Palpations: There is no fluid wave, hepatomegaly or mass. Tenderness: There is no abdominal tenderness. There is no guarding. Musculoskeletal: General: No swelling or deformity. Skin: Coloration: Skin is not jaundiced. Findings: No erythema or rash. Neurological: Mental Status: Patient is alert. Progress Results/Orders Results/Orders Orders - GEORGE CARDONA MD Famotidine/Pf Iv Inj (Pepcid Iv Inj) (03/14/25 20:00) Page Hospitalist (03/14/25 16:35) Completed Orders - GEORGE CARDONA MD Electrocardiogram (03/14/25 16:10) Ondansetron Inj. (Zofran 4mg/2ml Vial) (03/14/25 16:25) Hydrocodone/Apap 10/325 ([place] 10/325mg (03/14/25 16:40) Medications Received in ER Medications (Trade) Dose Ordered Sig/Kimi Route PRN Reason Start Time Stop Time Status Last Admin Dose Admin (Zofran 4mg/2ml vial) 4 mg ONCE ONCE IV 03/14/25 16:25 03/14/25 16:26 DC 03/14/25 16:28 4 MG Vital Signs 03/14/25 16:11 Temp 98.2 Pulse 115 Resp 17 B/P (MAP) 141/82 Pulse Ox 94 O2 Flow Rate 0 Medical Decision Making Findings This 55-year-old man presented after a generalized allergic reaction which included respiratory symptoms and oral facial swelling. He appears better than the description of paramedics earlier, at this time. I am going to add famotidine to his already given regimen and get him admitted for observation. Departure Disposition: ADMITTED INPATIENT Admitted to Inpatient Unit: to hospitalist Admission Level of Care: Med/Surg Impression: Primary Impression: Acute allergic reaction Condition: Stable Referrals: NO PRIMARY CARE PROVIDER (PCP) Signature Scribe Signature: . Attestation: . GEORGE CARDONA MD Mar 14, 2025 16:39
[2025-03-14] MEDS: HYDROcodone/acetaminophen 10/325mg tab PO ONE (16:56)
[2025-03-14] MEDS: famotidine/PF 10 mg/ml inj IV ONE (17:34)
[2025-03-14] MEDS ORDERED: potassium Cl 20 mEq SR tablet PO PRN ×2 (17:55)
[2025-03-14] MEDS ORDERED: magnesium sulf-water 2g/50mL 50 ML IV PRN (17:55)
[2025-03-14] MEDS ORDERED: potassium Cl 40MEQ/1/2NS 520ml 520 ML IV PRN (17:55)
[2025-03-14] MEDS ORDERED: magnesium sulf-water 4G/100mL 100 ML IV PRN (17:55)
[2025-03-14] MEDS ORDERED: magnesium hydroxide 30ml (MOM) UD suspension PO PRN (17:55)
[2025-03-14] MEDS ORDERED: mag hydrox/Alum hydrox/simeth 30ml oral suspension PO PRN (17:55)
[2025-03-14] MEDS ORDERED: magnesium Cl slow-release 64mg tablet PO PRN (17:55)
--- NOTE | 2025-03-14 18:26 | HISTORY AND PHYSICAL-Residence ---
History & Physical Providers to CC Resident Creating Document: RODRIGO PÉREZ, HALEY ~ History of Present Illness Primary Medical Doctor: no pcp Reason for Admit\Complaint: anaphylaxis History of Present Illness A 55 Yrs old male patient(he is from [place]) with past medical history of hypertension, AFib with questionable obstructive sleep apnea, obesity, diverticulitis requiring partial bowel resection status post colostomy , chronic right ankle pain presented to ER with chief complaints of itching all over the body from 1:00 p.m. on today after having macaroni salad and half a glass of milk. He usually takes macaroni salad and a half a glass of milk but he never had this kind of symptoms. He felt short of breath after eating the macaroni salad around 1:00 p.m. on today. Endorses hives and orofacial , swelling of tongue . Reports dizziness while he was about to stand up from a long time and endorses decreased energy levels for the past few months. He do reports chest discomfort in the form of chest tightness over the retrosternal area & not associated with any aggravating and relieving factors. He do reports swelling of the legs for the past few months. Complaining of the wheezing from today 1:00 p.m. and he denied any intake of medications, drugs, substances, insect bite and he received epinephrine, albuterol, Solu-Medrol in EMS and he felt better in the ER but still he complaints of swelling of hands, face, feet. He denied chest pain, palpitations, fever, cough, abdominal distention, weakness, slurring of speech, deviation of angle of mouth. Discussed the code status with the patient and he wants to be in full code Allergies: Coded Allergies: ibuprofen (Verified Allergy, Intermediate, blood in stool, 01/24/19) celecoxib (Verified Allergy, Unknown, blood in stool, 01/24/19) Uncoded Allergies: ONIONS (Allergy, Unknown, 01/24/19) Home Medications Home Medications Active Prevacid (Lansoprazole) 30 Mg Capsule. 1 Cap PO DAILY 30 Days Hydrocodon-Acetaminophn 10-325 tablet (Acetaminophen/Hydrocodone Bitart) 1 Each Tablet 1 Tab PO Q4H PRN Atenolol 50 Mg Tablet 50 Mg PO DAILY Past Medical History Past Medical History Hypertension Atrial fibrillation Class 3 obesity Obstructive sleep apnea Diverticulitis Acute gastritis Past Surgical History Surgical History Comment Partial bowel resection for diverticulitis status post colostomy Family History Family History: FH: CABG (coronary artery bypass surgery) FATHER FH: HTN (hypertension) FH: diabetes mellitus MOTHER FH: prostate cancer GRANDFATHER OR GRANDMOTHER Past Social History Smoking: Non-Smoker Alcohol Use: None Drug Use: None Lives with: Family Lives In: Home Occupation: retired ROS All Other Systems: Reviewed and Negative ROS Reviewed in full and negative except positive pertinent as in HPI Exam Vitals: Vital Signs Date Time Temp Pulse Resp B/P (MAP) Pulse Ox O2 Delivery O2 Flow Rate FiO2 03/14/25 17:40 102 16 105/63 (77) 95 03/14/25 17:06 0 03/14/25 16:11 98.2 General: General: Awake , alert, and oriented x4, resting comfortably in the bed, in mild distress. Morbid obese HEENT: Atraumatic, normocephalic, EOMI, anicteric sclera ; pink conjunctiva. Mild swelling is present over the tongue Neck: Trachea midline. Supple, full range of motion, no JVD Cardiac: Regular rhythm, regular rate . systolic murmurs all over the pr ecordium. Respiratory: ,Equal breath sounds bilaterally, no tachypnea,rub or rales, Chest wall is symmetric and without deformity. Bilateral wheezing is present in suprascapular and interscapular area Gastrointestinal: Abdomen asymmetric the left colostomy, non-distended, soft, non-tender, normal bowel sounds x4 quadrant, normoactive, no hepatosplenomegaly Musculoskeletal: Right lower extremity: Purple, , tender scaly, with chronic ulcer present with clear demarcation [id number]. Pulses felt Left lower extremity: Purple tender scaly with chronic ulcers present with clear demarcation [id number], multiple large petechia, pulses could not be felt Neurological: Speech is clear, alert, and oriented x 4. No motor or sensory deficit, deep tendon reflexes normal, cerebellar intact. Cranial nerves II-XII intact. Skin: Warm and dry Advance Care Planning Advanced Care planning: Add on additional 30 min Additional Plan Assessment and plan Anaphylaxis 2/2 unknown cause Angioedema Blood pressures are on soft side and we are giving IV normal saline at the rate of 50 mL/hour CBC showed leukocytosis, neutrophil predominance Chest x-ray showing possible left lower lung pneumonia/atelectasis Troponins ProBNP Received epinephrine in EMS. Currently on IV Benadryl 25 mg q.6 H p.r.n. On famotidine 20 mg p.o. b.i.d. JALIL likely secondary to renal tubular stasis Serum creatinine is 1.66 Ordered urinary lytes and serum osmolality we will follow up with the results Currently on IV normal saline at the rate of 50 mL/hour Possible acute exacerbation of COPD Possible left lung pneumonia covering Gram-positive, Gram-negative, atypical organism Possible acute systolic heart failure Received 125 methylprednisolone stat followed by methylprednisolone 40 mg q.6 H IV Ordered troponins, proBNP, echocardiogram we will follow up with the results Chest x-ray showed left lower lung atelectasis/infiltrates Hypertension Blood pressure is on soft side On home medications of atenolol 50 and weak currently held it because of soft blood pressures Paroxysmal AFib No new episodes over telemetry and we will continue to monitor He is on home medications of atenolol 50 Acute gastritis On home medications of lansoprazole but we are giving the famotidine 20 mg p.o. b.i.d. Class 3 obesity Obstructive sleep apnea Lifestyle modifications for reduction of weight and physical exercise and follow up with primary care in outpatient Code status: Full code Diet: Heart healthy diet Lines: PIV PT: ORDERED PROGNOSIS: GUARDED Rodrigo Pérez along with new PGY 1 resident-Dieudonne BOWLING resident, PGY 2 Date of Service: Mar 14, 2025 Billing Provider: ÁNGELA LUNA MD, VENKATESH, RES Mar 14, 2025 18:26
[2025-03-14 18:28] LABS: MEAN PLATELET VOLUME 8.7 FL (7.4-10.4); RED CELL DISTRIBUTION WIDTH 15.5 % (11.5-14.5)
[2025-03-14 18:42] LABS: CREATININE 1.66 MG/DL (0.60-1.10); TOTAL CARBON DIOXIDE 25.1 MMOL/L (24-32); eCRCL 56 ML/MIN; eGFR 43 ML/MIN
--- NOTE | 2025-03-14 18:42 | RADIOLOGY REPORT ---
EXAMINATION: AP portable chest radiograph CLINICAL HISTORY: SOB COMPARISON: CHEST,SINGLE VIEW on DOS: 12/07/22 FINDINGS: Lead wire overlies the thorax. Streaky opacities in the left lung base. No dominant consolidations. The costophrenic angles appear clear. No sizable pleural effusions or pneumothorax. The cardiomediastinal silhouette appears withi n normal limits given technique. IMPRESSION: Streaky opacities in the left lung base may reflect atelectasis/scarring or developing infiltrate. C orrelate to exclude infection.
[2025-03-14 18:51] LABS: PHOSPHORUS 2.0 MG/DL (2.3-4.5); PRO BRAIN NATRIURETIC PEPTIDE 70 PG/ML (0-125)
[2025-03-14] MEDS: normal saline 1000ml 1,000 ML IV SCH (18:57)
[2025-03-14] MEDS ORDERED: albuterol 2.5 MG/3 ML nebule NEB PRN (19:20)
[2025-03-14] MEDS: CefTRIAXone/D5W-Rocephin 1gm 50 ML IV ONE (19:37)
[2025-03-14] MEDS ORDERED: NO HOME MEDS (19:52)
[2025-03-14 20:00] VITALS: BP_SYST 135; BP_SYST 138; BP_SYST 147; BP_DIAS 71; BP_DIAS 72; BP_DIAS 81; PULSE 101; PULSE 91; PULSE 98
[2025-03-14] MEDS ORDERED: famotidine/PF IV inj 40 MG in normal saline 100ml IV soln 100 ML IV SCH (20:00)
[2025-03-14] MEDS: docusate sod 100mg capsule PO SCH (20:00)
[2025-03-14] MEDS: K and/or MAG REPLACEMENT MC SCH (20:00)
[2025-03-14 20:05] VITALS: BP 160/86; PULSE 107; RESP 22; TEMP 98.3; O2SAT 93
[2025-03-14] MEDS: methylPREDNISolone sod succ/PF 40mg inj. IV SCH (21:05)
[2025-03-14 21:29] VITALS: RESP 22; O2SAT 93
[2025-03-14] MEDS: ipratropium/albuterol 3ml nebule NEB SCH (23:04)
[2025-03-14 23:05] VITALS: PULSE 91; RESP 14; O2SAT 93
[2025-03-14 23:11] VITALS: PULSE 92; RESP 16
[2025-03-14] MEDS: heparin, porcine 5000 units/ml vial SQ SCH (23:42)
[2025-03-15] VITALS (19 sets, daily range): BP systolic 98–136; BP diastolic 59–73; PULSE 8–102; RESP 14–20; TEMP 97.4–98; O2SAT 90–96
[2025-03-15] MEDS: HYDROcodone/acetaminophen 10/325mg tab PO ONE (03:30)
[2025-03-15 05:57] LABS: MEAN PLATELET VOLUME 8.7 FL (7.4-10.4); RED CELL DISTRIBUTION WIDTH 15.3 % (11.5-14.5)
[2025-03-15 06:20] LABS: CHOL/HDL RATIO 4.8 (0.00-4.99); CREATININE 1.20 MG/DL (0.60-1.10); LDL CHOLESTEROL 120 MG/DL (50-100); TOTAL CARBON DIOXIDE 22.6 MMOL/L (24-32); eCRCL 77 ML/MIN; eGFR 63 ML/MIN
[2025-03-15] MEDS: ondansetron/PF 4mg/2ml inj IV PRN (07:44)
[2025-03-15 07:54] LABS: LEUKOCYTE ESTERASE ,URINE NEGATIVE (Neg); NITRITES, URINE NEGATIVE (Neg); OCCULT BLOOD,URINE NEGATIVE (Neg)
[2025-03-15 08:04] LABS: UA COLLECTION TYPE CLN CATCH MIDSTREAM
[2025-03-15 08:06] LABS: MUCUS STRANDS MANY /LPF (Neg)
[2025-03-15 08:07] LABS: SQUAMOUS EPITHELIAL CELL,UR FEW /LPF (FEW)
[2025-03-15 08:11] LABS: URINE AMPHETAMINE SCREEN NEGATIVE (Neg); URINE BARBITUATE SCREEN NEGATIVE (Neg); URINE BENZODIAZEPINES SCREEN NEGATIVE (Neg); URINE CANNABINOID SCREEN NEGATIVE (Neg); URINE COCAINE SCREEN NEGATIVE (Neg); URINE METHADONE SCREEN NEGATIVE (Neg); URINE OPIATE SCREEN POSITIVE (Neg); URINE PHENCYCLIDINE SCREEN NEGATIVE (Neg)
[2025-03-15 08:25] LABS: OSMOLALITY UA 840 MOSM/K (50-1400)
[2025-03-15] MEDS: CefTRIAXone/D5W-Rocephin 1gm 50 ML IV SCH (09:12)
[2025-03-15 09:15] LABS: UA EOSINOPHILS NO EOS /HPF
[2025-03-15 09:40] LABS: TOTAL PROTEIN,URINE RANDOM 56.7 MG/DL
[2025-03-15 10:01] LABS: CREATININE,URINE RANDOM 388.0 MG/DL
--- NOTE | 2025-03-15 17:28 | PROGRESS NOTE- Residence ---
Progress Note - Resident Providers to CC Resident Creating Document: AJIT HAM, RES ~ Antibiotic Timeout Antibiotic Ordered?: Yes Subjective Seen and examined the patient at bedside. He endorses that his itching,hives, swelling of the tongue and wheezing completely subsided now. The patient stated that he continues to have swelling of both hands and legs from past few months. He also endorses shortness of breaths and dizziness. He said that he has right knee pain status post 2 arthroscopies and 2 arthrotomies of right knee for the medial meniscus repair. He denied chest pain , palpitations, fever ,cough ,abdominal distention,confusion at the moment. Orthostatic vitals are normal. Objective Vital Signs Date Time Temp Pulse Resp B/P (MAP) Pulse Ox O2 Delivery O2 Flow Rate FiO2 03/15/25 16:31 20 03/15/25 15:32 8 Room Air 0.0 03/15/25 15:25 94 28 03/15/25 10:00 97.9 130/73 (92) Result Diagram: 03/15/25 0531 03/15/25 0531 General: General: Awake , alert, and oriented to time,place, person, not in acute distress and Morbidly obese. HEENT: Atraumatic, normocephalic, EOMI, anicteric sclera ; pink conjunctiva. swelling of tongue absent. Neck: Trachea midline. Supple, full range of motion, no JVD Cardiac: Regular rhythm, regular rate . systolic murmurs all over the precordium. Abdomen:Equal breath sounds bilaterally, no tachypnea,rub or rales, Chest wall is symmetric and without deformity. No wheezing. Gastrointestinal: Abdomen symmetric, non-distended, soft, non-tender, normal bowel sounds x4 quadrant, normoactive, no hepatosplenomegaly Musculoskeletal: Bilateral small multiple rashes over the both legs suggestive of healed scab tissue Pulses felt Extremities: Swelling of both hands present , Grade 1,pitting type of pedal [id number] on both sides are present. Neurological: Speech is clear, alert, and oriented x 4. No motor or sensory deficit, deep tendon reflexes normal, cerebellar intact. Cranial nerves II-XII intact. Skin: Warm and dry Advance Care Planning Advanced Care plannin - 30 Minutes Plan Plan Assessment and plan Anaphylaxis 2/2 unknown cause, improving Angioedema, improved Blood pressures are on soft side and Currently on IV normal saline at the rate of 50 mL/hour White blood counts are on the better side today On methylprednisolone 40 mg 60 q.6 H q.i.d On IV Benadryl 25 mg q.6 H q.i.d On famotidine 20 mg p.o. b.i.d. JALIL 2/2 prerenal, vasomotor nephropathy Serum creatinine down trended to 1.20 from 1.66 We will continue IV normal saline at the rate of 50 mL/hour Fe Na less than 1, osmolality 304, urine osmolality 840, urine creatinine 388, urine random sodium less than 50 Ruled out Acute heart failure Echo showed EF 60 % and no PAH. Acute exacerbation of COPD likely 2/2 possible occupational lung disease/obstructive sleep apnea Possible left lung pneumonia covering Gram-positive, Gram-negative, atypical organism Received 125 methylprednisolone stat followed by IV methylprednisolone 40 mg q.6 H . Chest x-ray showed left lower lung atelectasis/infiltrates. On Rocephin and azithromycin. Hypertension Blood pressure is 120s Started back on home medications of atenolol 50mg P.O Q.24.H Paroxysmal AFib No new episodes over telemetry and we will continue to monitor We will continue atenolol 50 Acute gastritis On home medications of lansoprazole but we are giving the famotidine 20 mg p.o. b.i.d. Class 3 obesity Obstructive sleep apnea Lifestyle modifications for reduction of weight and physical exercise and follow up with primary care in outpatient Code status: Full code Diet: Heart healthy diet Lines: PIV PT: ORDERED PROGNOSIS: GUARDED DVT prophylaxis: Heparin 5000 units subcutaneous b.i.d. Disposition: Continue conservative management of anaphylaxis reaction and will monitor in telemetry. Date of Service: Mar 15, 2025 Billing Provider: ÁNGELA LUNA MD, SUNIL KUMAR, RES Mar 15, 2025 17:28 MARIA INES PÉREZ, RES Mar 15, 2025 20:01
--- NOTE | 2025-03-15 18:29 | CARDIOLOGY REPORT ---
APPROVED REPORT EXAM: Comprehensive 2D, Doppler, and color-flow Echocardiogram. 2D Dimensions LA Diam4.5 cm IVSd 1.3 (0.7-1.1cm) LVDd 5.3 cm PWd 1.3 (0.7-1.1cm) IVSs 1.9 (0.8-1.2cm) LVDs 3.7 (2.5-4.0cm) Aortic Root(2D) 3.5 cm PWs 1.7 (0.8-1.2cm) LVOT Diameter 2.41 (1.8-2.4cm) LVEF(%) 65.0 (>50%) FS (%) 30.9 % SV 79.4 ml CO 7.9 L/min Aortic Valve AoV Peak Juaquin. 133.4 cm/s AoV VTI 18.3 cm AO Peak GR. 7.1 mmHg AO Mean GR. 4 mmHg LVOT VTI 21.26 cm LVOT Peak Juaquin. 122.5 cm/s JONAS(VTI)/BSA 5.30 cm2/m2 JONAS (VTI) 5.30 cm2 Mitral Valve MV E Velocity 68.2 cm/s MV Peak Gr. 3 mmHg MV DECEL TIME 148 ms MV A Velocity 74.4 cm/s MV PHT 52 ms E/A Ratio 0.9 MVA (PHT) 4.23 cm2 MV VMax79.3 cm/s TDI Medial E' P. V 8.72 cm/s E/Medial E' 7.8 Tricuspid Valve RAP ESTIMATE 10 mmHg Pulmonary Vein S1 Velocity 43.6 cm/s D2 Velocity 21.8 cm/s PVa Xhojjvkk99.1 cm/s PVa [id number] msec LEFT VENTRICLE Normal LV size and function. Mild concentric hypertrophy. LVEF is 75%. RIGHT VENTRICLE RV appears normal in size and contractility. ATRIA Left atrium is mildly dilated. AORTIC VALVE Trileaflet AV appears sclerotic without stenosis. No insufficiency. MITRAL VALVE MV is thickened with mild annular thickening and no stenosis. Trace mitral regurgitation. TRICUSPID VALVE The tricuspid valve is normal in structure. Trace tricuspid regurgitation. PULMONIC VALVE The pulmonary valve is normal in structure. Trace pulmonic regurgitation. GREAT VESSELS The aortic root is normal in size. IVC is not well visualized. PERICARDIUM There is no pericardial effusion. Other Information Study Quality: Poor Conclusion Normal LV size and function. Mild concentric hypertrophy. LVEF is 75%. RV appears normal in size and contractility. Left atrium is mildly dilated. Trileaflet AV appears sclerotic without stenosis. No insufficiency. MV is thickened with mild annular thickening and no stenosis. Trace mitral regurgitation. The tricuspid valve is normal in structure. Trace tricuspid regurgitation. The pulmonary valve is normal in structure. Trace pulmonic regurgitation. There is no pericardial effusion.
[2025-03-16] VITALS (10 sets, daily range): BP systolic 104–146; BP diastolic 67–83; PULSE 66–93; RESP 15–18; TEMP 97.6–98.2; O2SAT 92–99
[2025-03-16 05:41] LABS: MEAN PLATELET VOLUME 8.7 FL (7.4-10.4); RED CELL DISTRIBUTION WIDTH 15.4 % (11.5-14.5)
[2025-03-16 05:49] LABS: CREATININE 1.30 MG/DL (0.60-1.10); TOTAL CARBON DIOXIDE 24.3 MMOL/L (24-32); eCRCL 71 ML/MIN; eGFR 58 ML/MIN
[2025-03-16] MEDS ORDERED: ALBU8HFA PO (11:14)
[2025-03-16] MEDS ORDERED: DIPH25CA83 PO (11:14)
[2025-03-16] MEDS ORDERED: CEFD300C3 PO (11:14)
[2025-03-16] MEDS ORDERED: BUDE10.2 INH (11:14)
[2025-03-16] MEDS ORDERED: FAMO20TA8 PO (11:14)
[2025-03-16] MEDS ORDERED: ATEN50TA41 PO (11:14)
[2025-03-16] MEDS ORDERED: NOR5T PO (11:14)
[2025-03-16] MEDS ORDERED: EPIN0.1519 IM (11:14)
[2025-03-16] MEDS ORDERED: AZIT500T PO (11:14)
[2025-03-16] MEDS ORDERED: PRED10TA23 PO (11:14)
--- NOTE | 2025-03-16 18:03 | DISCHARGE SUMMARY-Residence ---
Discharge Summary Providers to CC Resident Creating Document: RAMIRO MORENO, RES ~ Discharge Summary Admission Diagnosis: anaphylaxis with Angiodema 2/2 unknown cause Hospital Course DATE OF ADMISSION: 03/14/2025 DATE OF DISCHARGE: 03/16/2025. Echocardiography: Conclusion Normal LV size and function. Mild concentric hypertrophy. LVEF is 75%. RV appears normal in size and contractility. Left atrium is mildly dilated. Trileaflet AV appears sclerotic without stenosis. No insufficiency. MV is thickened with mild annular thickening and no stenosis. Trace mitral regurgitation. The tricuspid valve is normal in structure. Trace tricuspid regurgitation. The pulmonary valve is normal in structure. Trace pulmonic regurgitation. There is no pericardial effusion. Chest x-ray: IMPRESSION: Streaky opacities in the left lung base may reflect atelectasis/scarring or developing infiltrate. Correlate to exclude infection. 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 Community-acquired pneumonia covering Gram-positive, Gram-negative and atypical organism. Hypertension Paroxysmal atrial fibrillation Acute gastritis Class three obesity Obstructive sleep apnea Operations\Procedures: None Consultants: None Complications: None Condition on DC: Stable New Medications: albuterol inhaler (Pro-Air Inhaler) 8.5 Gm Inhaler 1-2 PUFFS PO Q4H PRN for shortness of breath, #1 INH Azithromycin (Zithromax) 500 Mg Tablet 1 TAB PO ONCE for 1 Day, #1 TAB Budesonide/Formoterol Fumarate (Symbicort 160-4.5 Mcg Inhaler) 160 Mcg-4.5 Mcg/Actuation Hfa.aer.ad 2 PUFFS INH Q12H for 30 Days, #10.2 GM 0 Refills Cefdinir* (Cefdinir*) 300 Mg Capsule 1 CAP PO Q12H for 5 Days, #10 CAP Diphenhydramine Hcl (Benadryl) 25 Mg Capsule 1 CAP PO BID PRN for allergies for 30 Days, #30 CAP 0 Refills Epinephrine (Epinephrine) 0.15 Mg/0.15 Ml Auto.injct 2 SYR IM PRN PRN for allergies, #0.3 ML 0 Refills As needed for severe allergic reaction/ anaphylaxis reaction,with symptoms including shortness of breath, swelling of extremities, and other emergensies as educated. Prednisone (Prednisone) 10 Mg Tablet 0 PO DAILY, #42 TAB Take 4 tabs daily x4 days, then 3 daily x4 days 2 daily x4 days 1 daily x4 days 1/2 daily x4 days then STOP Amlodipine Besylate (Amlodipine Besylate) 5 Mg Tablet 5 MG PO DAILY for 30 Days, #30 TAB Atenolol (Atenolol) 50 Mg Tablet 50 MG PO DAILY for 30 Days, #30 TAB Famotidine (Famotidine) 20 Mg Tablet 20 MG PO BID for 30 Days, #60 TAB Discontinued Medications: Home Med List (No Home Medications) Each Discharge Summary: History of Present Illness by admitting physician Dr. Nesbitt: A 55 Yrs old male patient(he is from [place]) with past medical history of hypertension, AFib with questionable obstructive sleep apnea, obesity, diverticulitis requiring partial bowel resection status post colostomy , chronic right ankle pain presented to ER with chief complaints of itching all over the body from 1:00 p.m. on today after having macaroni salad and half a glass of milk. He usually takes macaroni salad and a half a glass of milk but he never had this kind of symptoms. He felt short of breath after eating the macaroni salad around 1:00 p.m. on today. Endorses hives and orofacial , swelling of tongue . Reports dizziness while he was about to stand up from a long time and endorses decreased energy levels for the past few months. He do reports chest discomfort in the form of chest tightness over the retrosternal area & not associated with any aggravating and relieving factors. He do reports swelling of the legs for the past few months. Complaining of the wheezing from today 1:00 p.m. and he denied any intake of medications, drugs, substances, insect bite and he received epinephrine, albuterol, Solu-Medrol in EMS and he felt better in the ER but still he complaints of swelling of hands, face, feet. He denied chest pain, palpitations, fever, cough, abdominal distention, weakness, slurring of speech, deviation of angle of mouth. Discussed the code status with the patient and he wants to be in full code. The course in the hospital: The patient was admitted in the hospital as he has had significant anaphylactic reaction and angioedema secondary to unknown cause. Patient was started on IV Benadryl 25 mg t.i.d. and IV famotidine 20 mg b.i.d.. The patient was also started on supportive management with IV fluids for hydration and maintenance. Chest x-ray was significant for left lower lobe infiltrates. The patient reported history of occupational chemical exposure and chronic history of shortness of breath and hence the patient was suspected to have underlying COPD. The patient was started on DuoNeb nebulizations, respiratory therapist evaluation and management for the treatment of COPD along with IV antibiotics for the management of pneumonia. His blood pressures were significantly elevated and he reported that he quit taking his atenolol 50 mg two years ago. Restarted the patient on atenolol 50 mg and in view of uncontrolled blood pressure start him him on amlodipine 5 mg once daily. The patient's condition improved during the course of the hospitalization. The patient was told the importance of getting a primary care physician post discharge. Recommended the patient to follow up with the a primary care physician as soon as possible and get a referral for Gastroenterology for getting screening done for underlying colon cancer. The patient was also recommended to follow up with the Dr. Saleh the surgeon for his colostomy and large abdominal incision hernia. The patient is being discharged home and his condition is stable at the time of discharge. Advised at discharge: Establish care with PCP as recomended within 1 week. Follow up with GI for a screening colonoscopy at [facility] clinic. Follow up with Dr. Saleh for your colostomy care. In case of any new/ severe allergic reaction please use the EPI pen as educated. In case of worsening syntoms or emergensies call 911 or return to the er immediatey. Get a sleep study done to rule in or rule out obstructive sleep apnea soon as possible. Examination at discharge: General: Awake , alert, and oriented to time,place, person, not in acute distress and Morbidly obese. HEENT: Atraumatic, normocephalic, EOMI, anicteric sclera ; pink conjunctiva. swelling of tongue absent. Neck: Trachea midline. Supple, full range of motion, no JVD Cardiac: Regular rhythm, regular rate . systolic murmurs all over the prec ordium. Abdomen:Equal breath sounds bilaterally, no tachypnea,rub or rales, Chest wall is symmetric and without deformity. No wheezing. Gastrointestinal: Abdomen symmetric, non-distended, soft, non-tender, normal bowel sounds x4 quadrant, normoactive, no hepatosplenomegaly Musculoskeletal: Bilateral small multiple rashes over the both legs suggestive of healed scab tissue Pulses felt Extremities: Swelling of both hands present , Grade 1,pitting type of pedal mydmo-vla-bjsdy on both sides are present. Neurological: Speech is clear, alert, and oriented x 4. No motor or sensory deficit, deep tendon reflexes normal, cerebellar intact. Cranial nerves II-XII intact. Skin: Warm and dry Laboratory Tests Test 03/14/25 18:20 03/14/25 18:47 03/14/25 19:20 03/15/25 05:31 White Blood Count 17.2 X10'3 14.6 X10'3 Red Blood Count 5.36 X10'6 4.67 X10'6 Hemoglobin 16.6 g/dl 14.7 g/dl Hematocrit 49.6 % 43.3 % Mean Corpuscular Volume 92.4 FL 92.7 FL Mean Corpuscular Hemoglobin 30.9 PG 31.5 PG Mean Corpuscular Hemoglobin Concent 33.4 g/dL 34.0 g/dL Red Cell Distribution Width 15.5 % 15.3 % Platelet Count 342 X10'3 296 X10'3 Mean Platelet Volume 8.7 FL 8.7 FL Neutrophils (%) (Auto) 88.0 % 93.0 % Lymphocytes (%) (Auto) 7.7 % 5.3 % Monocytes (%) (Auto) 3.1 % 1.3 % Eosinophils (%) (Auto) 0.5 % 0 % Basophils (%) (Auto) 0.7 % 0.4 % Neutrophils # (Auto) 15.1 X10'3 13.6 X10'3 Lymphocytes # (Auto) 1.3 X10'3 0.8 X10'3 Monocytes # (Auto) 0.5 X10'3 0.2 X10'3 Eosinophils # (Auto) 0.1 X10'3 0.0 X10'3 Basophils # (Auto) 0.1 X10'3 0.1 X10'3 CBC Comment Sodium Level 141 MMOL/L 139 MMOL/L Potassium Level 4.2 MMOL/L 4.1 MMOL/L Chloride Level 108 MMOL/L 105 MMOL/L Carbon Dioxide Level 25.1 MMOL/L 22.6 MMOL/L Anion Gap 8 11 Blood Urea Nitrogen 18 MG/DL 20 MG/DL Creatinine 1.66 MG/DL 1.20 MG/DL Estimated GFR/1.73 m2 43 ML/MIN 63 ML/MIN BUN/Creatinine Ratio 10.8 16.7 Glucose Level 161 MG/DL 173 MG/DL Hemoglobin A1c 5.8 % Calcium Level 9.0 MG/DL 8.4 MG/DL Phosphorus Level 2.0 MG/DL Magnesium Level 2.2 MG/DL 2.1 MG/DL Total Bilirubin 0.4 MG/DL 0.4 MG/DL Aspartate Amino Transf (AST/SGOT) 50 U/L 39 U/L Alanine Aminotransferase (ALT/SGPT) 78 U/L 64 U/L Alkaline Phosphatase 109 IU/L 86 IU/L Pro-B-Type Natriuretic Peptide 70 PG/ML Total Protein 7.8 G/DL 7.1 G/DL Albumin 3.7 G/DL 3.3 G/DL Globulin 4.1 G/DL 3.8 G/DL Albumin/Globulin Ratio 0.9 0.9 Chemistry Comments Troponin I High Sensitivity 27 ng/L 26 ng/L Osmolality 304 MOSM/K Troponin I High Sens Percent Delta 3 % Troponin I Hi Sens Absolute Change -1 ng/L Triglycerides Level 115 MG/DL Cholesterol Level 186 MG/DL LDL Cholesterol 120 MG/DL HDL Cholesterol 39 MG/DL Cholesterol/HDL Ratio 4.8 Test 03/15/25 06:00 03/16/25 04:55 Urine Specimen Description Cln catch midstream Urine Color Yellow Urine Clarity Slightly cloudy Urine pH 5.5 Urine Specific [place] >=1.030 Urine Protein 30 mg/dl Urine Glucose (UA) Negative mg/dl Urine Ketones 40 mg/dl Urine Occult Blood Negative Urine Nitrite Negative Urine Bilirubin Negative Urine Urobilinogen 0.2 E.U/dL Urine Leukocyte Esterase Negative Urine RBC 0-2 /HPF Urine WBC 5-10 /HPF Urine Squamous Epithelial Cells Few /LPF Urine Bacteria 1+ /HPF Urine Cellular Casts 5-10 /LPF Urine Hyaline Casts 10-30 /LPF Urine Coarse Granular Casts 10-30 /LPF Urine Mucus Many /LPF Urine Culture Indicated Indicated Volume Urine Centrifuged 10 ml Urine Eosinophils No eos /HPF Urine Osmolality 840 MOSM/K Urine Random Creatinine 388.0 MG/DL Urine Random Total Protein 56.7 MG/DL Urine Random Sodium < 15 MEQ/L Urine Comment Urine Opiates Screen Positive Urine Methadone Screen Negative Urine Fentanyl Screen Negative Urine Barbiturates Screen Negative Urine Phencyclidine Screen Negative Urine Amphetamines Screen Negative Urine Benzodiazepines Screen Negative Urine Cocaine Screen Negative Urine Cannabinoids Screen Negative Drug Screen Comment White Blood Count 16.2 X10'3 Red Blood Count 4.27 X10'6 Hemoglobin 13.6 g/dl Hematocrit 40.1 % Mean Corpuscular Volume 94.0 FL Mean Corpuscular Hemoglobin 31.8 PG Mean Corpuscular Hemoglobin Concent 33.8 g/dL Red Cell Distribution Width 15.4 % Platelet Count 294 X10'3 Mean Platelet Volume 8.7 FL Neutrophils (%) (Auto) 91.4 % Lymphocytes (%) (Auto) 5.2 % Monocytes (%) (Auto) 3.3 % Eosinophils (%) (Auto) 0 % Basophils (%) (Auto) 0.1 % Neutrophils # (Auto) 14.8 X10'3 Lymphocytes # (Auto) 0.8 X10'3 Monocytes # (Auto) 0.5 X10'3 Eosinophils # (Auto) 0.0 X10'3 Basophils # (Auto) 0.0 X10'3 CBC Comment Sodium Level 138 MMOL/L Potassium Level 4.8 MMOL/L Chloride Level 105 MMOL/L Carbon Dioxide Level 24.3 MMOL/L Anion Gap 9 Blood Urea Nitrogen 33 MG/DL Creatinine 1.30 MG/DL Estimated GFR/1.73 m2 58 ML/MIN BUN/Creatinine Ratio 25.4 Glucose Level 157 MG/DL Calcium Level 8.2 MG/DL Magnesium Level 2.5 MG/DL Total Bilirubin 0.2 MG/DL Aspartate Amino Transf (AST/SGOT) 22 U/L Alanine Aminotransferase (ALT/SGPT) 54 U/L Alkaline Phosphatase 76 IU/L Total Protein 6.9 G/DL Albumin 3.3 G/DL Globulin 3.6 G/DL Albumin/Globulin Ratio 0.9 Chemistry Comments *Problems/Diagnosis: (1) Anaphylaxis (2) Angioedema (3) JALIL (acute kidney injury) (4) COPD (chronic obstructive pulmonary disease) (5) Pneumonia (6) Hypertension (7) Afib (8) Gastritis (9) Obesity (10) Obstructive sleep apnea Total Time Spent on D/C: > 30 Minutes Date of Service: Mar 16, 2025 Billing Provider: ÁNGELA LUNA MD, SURYA PRATIK, RES Mar 16, 2025 17:50
== END 2025-03-16 12:25 | disposition home or self-care (01) | DRG 811 ==
LOC: ER 16:06 → ED HOLD 17:17 → ORTHO 4S 20:05
PROVIDERS: ADMIT Family Medicine; ATTEND Family Medicine
DX: T78.3XXA Angioneurotic edema, initial encounter (principal); N17.0 Acute kidney failure with tubular necrosis; J18.9 Pneumonia, unspecified organism; J44.1 Chronic obstructive pulmonary disease with (acute) exacerbation; S27.391A Other injuries of lung, unilateral, initial encounter; E66.813 Obesity, class 3; G89.29 Other chronic pain; I10 Essential (primary) hypertension; I48.91 Unspecified atrial fibrillation; M25.561 Pain in right knee; G47.33 Obstructive sleep apnea (adult) (pediatric); T88.8XXA Other specified complications of surgical and medical care, not elsewhere classified, initial encounter; Y83.8 Other surgical procedures as the cause of abnormal reaction of the patient, or of later complication, without mention of misadventure at the time of the procedure; I48.0 Paroxysmal atrial fibrillation; K29.00 Acute gastritis without bleeding; J98.11 Atelectasis; X58.XXXA Exposure to other specified factors, initial encounter; Z79.899 Other long term (current) drug therapy; Z93.3 Colostomy status; Z68.42 Body mass index [BMI] 45.0-49.9, adult; Z88.8 Allergy status to other drugs, medicaments and biological substances; Y92.89 Other specified places as the place of occurrence of the external cause; Y93.89 Activity, other specified
CPT/HCPCS: 36415; 71045; 80053; 80061; 80305; 81001; 82570; 83036; 83735; 83880; 83930; 83935; 84100; 84156; 84300; 84484; 85025; 87081; 87088; 87207; 93005; 93306; 94640; 94760; 96365; 96375; 97116; 97161; 97530; 99285; A4615; G0378; J0696; J1200; J1644; J2270; J2405; J2919; J3490; J7030

== ENCOUNTER 2025-04-02 22:59 | Emergency (ER) | payer MEDICAID ==
[~2025-04-02] VITALS: Ht 182.9 cm; Wt 144.0 kg
[~2025-04-02 22:59] MED LIST changes: +ALBU8HFA PO; +BUDE10.2 INH; +DIPH25CA83 PO; +EPIN0.1519 IM; +FAMO20TA8 PO; -HYDR-3972 PO; -LANS30CA37 PO; +NOR5T PO; +PRED10TA23 PO
[2025-04-02] MEDS: normal saline 1000ml 1,000 ML IV ONE (23:40)
--- NOTE | 2025-04-02 23:41 | Physician Documentation ---
History of Present Illness ~ Chief Complaint: Allergic Reaction Stated Complaint: ALLERGIC REACTION Time Seen by MD: 23:36 Primary Medical Doctor: no pcp HPI Patient presents to the emergency room with lightheadedness and generalized weakness. Onset of symptoms today. He was admitted recently for anaphylaxis from unknown cause. He was discharged on amlodipine and atenolol for blood pressure. He does describe some mild right-sided knee pain but no other pain. Denies fever. Medication Reconciliation Allergies: Coded Allergies: ibuprofen (Verified Allergy, Intermediate, blood in stool, 01/24/19) celecoxib (Verified Allergy, Unknown, blood in stool, 01/24/19) Uncoded Allergies: ONIONS (Allergy, Unknown, 01/24/19) Scheduled Amlodipine Besylate (Amlodipine Besylate), 5 MG PO DAILY Atenolol (Atenolol), 50 MG PO DAILY Famotidine (Famotidine), 20 MG PO BID Scheduled PRN Diphenhydramine Hcl (Benadryl), 1 CAP PO BID PRN for allergies albuterol inhaler (Pro-Air Inhaler), 1-2 PUFFS PO Q4H PRN for shortness of breath Discontinued Medications Budesonide/Formoterol Fumarate (Symbicort 160-4.5 Mcg Inhaler), 2 PUFFS INH Q12H Discontinued Reason: patient no longer taking Epinephrine (Epinephrine), 2 SYR IM PRN PRN for allergies Discontinued Reason: Out of medication Prednisone (Prednisone), 0 PO DAILY Discontinued Reason: patient no longer taking Past Medical History Past Medical History: Atrial Fibrillation, Hypertension, Diverticulitis Past Surgical History: noncontributory Patient History: FH: CABG (coronary artery bypass surgery) FATHER FH: HTN (hypertension) FH: diabetes mellitus MOTHER FH: prostate cancer GRANDFATHER OR GRANDMOTHER Alcohol Use: None Drug Use: none Lives with: Family Lives In: Home Occupation: retired Physical Exam Vital Signs: Temperature: 98.4, Source: Oral, Heart Rate: 92, Respiratory Rate: 24, BP: 93/65, Pulse Oximetry: 93, Weight: 144.000 Progress Results/Orders Results/Orders Orders - KIRILL ANDERSON MD Stat Ekg (04/02/25 ) Chest,Single View (04/02/25 23:40) Monitor (04/02/25 23:31) Saline Lock (04/02/25 23:31) Oxygen (04/02/25 23:31) Norepinephrine 8mg/ 250ml Ns (Norepineph (04/03/25 00:15) Completed Orders - KIRILL ANDERSON MD Chest,Single View (04/02/25 23:40) Cbc/Diff (04/02/25 23:31) BMP (04/02/25 23:31) PBNP (04/02/25 23:31) Hs Troponin I W Calculations (04/02/25 23:31) Hs Troponin I W Calculations (04/03/25 01:31) Hs Troponin I W Calculations (04/03/25 02:31) Procalcitonin (04/02/25 23:36) Normal Saline 1000ml (0.9% Sodium Chlori (04/02/25 23:40) Normal Saline 1000ml (0.9% Sodium Chlori (04/03/25 00:15) Stat Ekg (04/03/25 ) Ondansetron Inj. (Zofran 4mg/2ml Vial) (04/03/25 04:55) Medications Received in ER Medications (Trade) Dose Ordered Sig/Kimi Route PRN Reason Start Time Stop Time Status Last Admin Dose Admin Sodium Chloride 1,000 ml @ 1,000 mls/hr ONCE ONCE IV 04/02/25 23:40 04/03/25 00:39 DC 04/02/25 23:40 1,000 MLS/HR Sodium Chloride 1,000 ml @ 1,000 mls/hr ONCE ONCE IV 04/03/25 00:15 04/03/25 01:14 DC 04/03/25 00:19 1,000 MLS/HR Vital Signs 04/02/25 04/02/25 04/02/25 04/02/25 23:04 23:17 23:41 23:41 Temp 98.4 98.4 Pulse 90 92 Resp 16 24 17 B/P (MAP) 70/48 93/65 (74) Pulse Ox 93 93 98 O2 Delivery Nasal Cannula* O2 Flow Rate 2 FiO2 28 04/02/25 04/03/25 04/03/25 04/03/25 23:45 00:12 00:22 01:19 Temp 98.4 98.4 98.4 98.4 Pulse 81 80 74 74 Resp 20 14 17 18 B/P (MAP) 78/42 (54) 74/48 (57) 84/45 (58) 92/51 (65) Pulse Ox 95 97 97 97 O2 Flow Rate 2 2 2 FiO2 04/03/25 04/03/25 04/03/25 04/03/25 01:32 01:52 02:15 02:32 Temp 98.4 98.4 98.4 98.4 Pulse 72 71 72 69 Resp 14 16 16 16 B/P (MAP) 90/55 (67) 101/59 (73) 94/56 (69) 110/63 (79) Pulse Ox 98 97 96 99 O2 Flow Rate 2 2 2 2 FiO2 04/03/25 04/03/25 04/03/25 04/03/25 02:57 03:14 03:15 03:35 Temp 98.4 98.4 98.4 Pulse 72 80 80 82 82 85 Resp 12 14 14 B/P (MAP) 107/65 (79) 108/60 108/60 (76) 105/64 (78) 107/62 105/64 Pulse Ox 98 98 98 O2 Flow Rate 2 2 2 FiO2 04/03/25 04/03/25 04/03/25 03:50 04:25 04:45 Temp 98.4 98.4 98.4 Pulse 76 77 78 Resp 14 16 14 B/P (MAP) 109/62 (78) 104/58 (73) 109/56 (73) Pulse Ox 97 96 97 O2 Flow Rate 2 2 2 FiO2 Laboratory Tests Test 04/02/25 23:34 04/02/25 23:44 04/03/25 00:29 04/03/25 02:20 Glucometer 188 H White Blood Count 14.7 H Red Blood Count 5.14 Hemoglobin 15.7 Hematocrit 46.7 Mean Corpuscular Volume 90.8 Mean Corpuscular Hemoglobin 30.5 Mean Corpuscular Hemoglobin Concent 33.6 Red Cell Distribution Width 14.6 H Platelet Count 370 Mean Platelet Volume 8.7 Neutrophils (%) (Auto) 86.3 H Lymphocytes (%) (Auto) 9.7 L Monocytes (%) (Auto) 2.4 Eosinophils (%) (Auto) 1.3 Basophils (%) (Auto) 0.3 Neutrophils # (Auto) 12.7 H Lymphocytes # (Auto) 1.4 Monocytes # (Auto) 0.3 Eosinophils # (Auto) 0.2 Basophils # (Auto) 0.0 CBC Comment Sodium Level 140 Potassium Level 4.0 Chloride Level 109 H Carbon Dioxide Level 21.8 L Anion Gap 9 Blood Urea Nitrogen 14 Creatinine 1.63 H Estimated GFR/1.73 m2 44 BUN/Creatinine Ratio 8.6 L Glucose Level 168 H Calcium Level 8.2 L Troponin I High Sensitivity 14 16 17 Pro-B-Type Natriuretic Peptide 118 Albumin 3.3 L Procalcitonin 0.07 Chemistry Comments Troponin I High Sens Percent Delta 14 6 Troponin I Hi Sens Absolute Change 2 1 Medical Decision Making Findings Patient presents to the emergency room with lightheadedness and generalized weakness. Differentials include but are not limited to sepsis, electrolyte disturbances, dehydration therefore emergent labs ordered. Mild dehydration. Significant hypotension that has responding to IV fluids. I suspect that has an element of dehydration as well as medication side effect from his recently added labetalol and calcium channel gretta. The need to begin blood pressure log and to back off his blood pressure medications and stay hydrated discussed. Departure Disposition: 01 HOME / SELF CARE / HOMELESS Impression: Primary Impression: Medication side effect Additional Impression: Dehydration Condition: Improved Discharge Instructions: General Discharge Instructions Additional Instructions: Stop your labetalol. Stay hydrated and begin blood pressure log they can bring with you to your next doctor's appointment. Return for worsening of symptoms or fevers. If you do feel lightheaded make sure you steady herself/sit down/laid down that has you do not want to pass out and hit your head. Referrals: NO PRIMARY CARE PROVIDER (PCP) Signature Scribe Signature: No scribe Attestation: The note accurately reflects work and decisions made by me.Kirill Anderson MD 04/03/25 05:00 KIRILL ANDERSON MD Apr 02, 2025 23:41
[2025-04-02 23:52] LABS: MEAN PLATELET VOLUME 8.7 FL (7.4-10.4); RED CELL DISTRIBUTION WIDTH 14.6 % (11.5-14.5)
[2025-04-03] MEDS: NORepinephrine 8mg/ 250ml NS 250 ML IV SCH (00:15)
[2025-04-03] MEDS: normal saline 1000ml 1,000 ML IV ONE ×2 (00:19→05:10)
[2025-04-03 01:32] LABS: CREATININE 1.63 MG/DL (0.60-1.10); PRO BRAIN NATRIURETIC PEPTIDE 118 PG/ML (0-125); TOTAL CARBON DIOXIDE 21.8 MMOL/L (24-32); eCRCL 57 ML/MIN; eGFR 44 ML/MIN
--- NOTE | 2025-04-03 04:51 | ELECTROCARDIOGRAPH REPORT ---
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
[2025-04-03] MEDS: ondansetron/PF 4mg/2ml inj IV ONE (05:12)
--- NOTE | 2025-04-03 05:32 | ELECTROCARDIOGRAPH REPORT ---
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
[2025-04-03 06:11] VITALS: BP 107/57; PULSE 71; RESP 12; TEMP 98.4; O2SAT 96
--- NOTE | 2025-04-03 08:43 | RADIOLOGY REPORT ---
CHEST RADIOGRAPH Indication: CP Technique: Single frontal view of the chest was obtained COMPARISON: DI CHEST,SINGLE VIEW on DOS: 03/14/25, CHEST,SINGLE VIEW on DOS: 12/07/22, CHEST,TWO VIEWS on DOS: 01/25/19, UNI RIBS WITH PA CHEST on DOS: 01/24/19 FINDINGS: Lines and Tubes: None Lungs: Clear Pleura: No effusion. No pneumothorax. Cardiomediastinal contours: Unremarkable Bones: Unremarkable IMPRESSION: No acute disease.
== END 2025-04-03 06:13 | disposition home or self-care (01) ==
LOC: ER 22:59
DX: R42 Dizziness and giddiness (principal); T50.995A Adverse effect of other drugs, medicaments and biological substances, initial encounter; E86.0 Dehydration; I48.91 Unspecified atrial fibrillation; I10 Essential (primary) hypertension; Z88.6 Allergy status to analgesic agent; Z88.8 Allergy status to other drugs, medicaments and biological substances; Z79.899 Other long term (current) drug therapy; Y92.89 Other specified places as the place of occurrence of the external cause
CPT/HCPCS: 36415; 71045; 80048; 82948; 83880; 84145; 84484; 85025; 93005; 96361; 96374; 99285; J2405; J7030

== ENCOUNTER 2025-04-29 03:32 | Emergency (ER) | payer MEDICAID ==
[~2025-04-29] VITALS: Ht 182.9 cm; Wt 136.4 kg
[~2025-04-29 03:32] MED LIST changes: -ALBU8HFA PO; -BUDE10.2 INH; -EPIN0.1519 IM; -PRED10TA23 PO
--- NOTE | 2025-04-29 03:37 | Physician Documentation ---
History of Present Illness General Stated Complaint: ALLERGIC REACTION Time Seen by MD: 03:36 Primary Medical Doctor: no pcp History of Present Illness Initial Comments The patient is a 55-year-old male who presents to the emergency room brought in by EMS after he developed some slight shortness of breath and a itching rash states he developed hives to his torso and itching in his back. The patient states he also had some shortness of breath. Occurred proximally an hour prior to me seeing the patient. The patient states he took Benadryl prior to EMS arrival. The patient states he has had episodes of shortness of breath over the last three months. He states about a month and a half ago was admitted for an allergic reaction and they are not sure exactly what he was allergic to. Patient denies any recent fevers chills nausea or vomiting he states he was feeling fine for this episode started proximally 1 hour ago. Patient denies any new ingestions or new medications. Medication Reconciliation Allergies: Coded Allergies: ibuprofen (Verified Allergy, Intermediate, blood in stool, 01/24/19) celecoxib (Verified Allergy, Unknown, blood in stool, 01/24/19) Uncoded Allergies: ONIONS (Allergy, Unknown, 01/24/19) Scheduled Amlodipine Besylate (Amlodipine Besylate), 5 MG PO DAILY Atenolol (Atenolol), 50 MG PO DAILY Famotidine (Famotidine), 20 MG PO BID Scheduled PRN Albuterol Sulfate (Ventolin Hfa), 2 PUFFS INH Q4HPRN PRN for SOB or wheezing Diphenhydramine Hcl (Benadryl), 1 CAP PO BID PRN for allergies Past Medical History Past Medical History: Atrial Fibrillation, Hypertension, Diverticulitis Past Surgical History: noncontributory Smoking: Non-Smoker Alcohol Use: None Drug Use: none Lives with: Family Lives In: Home Occupation: retired Review of Systems All Other Systems at this time: Reviewed and Negative Physical Exam Physical Exam Physical Exam VITALS: Reviewed and as above. GENERAL: Alert, no apparent distress. HEENT: Normocephalic, atraumatic, PERRL, EOMI, dry mucosa, no erythema RESPIRATORY: Slightly diminished breath sounds bilaterally, no respiratory di stress. CHEST: No accessory muscle use, no retractions CV: Regular rate, rhythm, no edema, no murmur, No: JVD GI: Soft, non-tender, bowels sounds present, no rebound, guarding, or rigidity BACK: No CVA tenderness, or swelling MUSCULOSKELETAL: No deformities, no edema SKIN: Warm and dry, no rash NEURO: Oriented x4, No motor or sensory deficit PSYCH: Normal mood and affect, no agitation Progress Results/Orders Results/Orders Completed Orders - OHLNEIL SINGLETON MD Dexamethasone Inj (Decadron 10mg/Ml Inj) (04/29/25 03:39) Famotidine/Pf Iv Inj (Pepcid Iv Inj) (04/29/25 03:40) Stat Ekg (04/29/25 04:30) Medications Received in ER Medications (Trade) Dose Ordered Sig/Kimi Route PRN Reason Start Time Stop Time Status Last Admin Dose Admin (Decadron 10mg/ ml inj) 10 mg ONCE STAT IV 04/29/25 03:39 04/29/25 03:41 DC 04/29/25 04:05 10 MG (Pepcid IV inj) 20 mg ONCE ONCE IV 04/29/25 03:40 04/29/25 03:41 DC 04/29/25 04:05 20 MG Vital Signs 04/29/25 04/29/25 04/29/25 03:36 04:11 05:24 Temp 97.9 97.9 Pulse 113 97 Resp 20 22 18 B/P (MAP) 166/95 128/83 Pulse Ox 97 94 O2 Flow Rate 0 Medical Decision Making Findings Patient is a 12 lead EKG demonstrates a sinus rhythm with a rate of 94 beats per minute and a slight left axis deviation. The patient also has some nonspecific ST abnormalities impression is an abnormal EKG interpreted by me at 0440. The patient states he felt like he developed slightly increased shortness of breath as well as hives and a rash. By the time the patient has arrived to me as lungs were clear slightly diminished and there was no obvious rash. The patient was observed and given a dose of Decadron IV I was also given famotidine IV he had taken Benadryl at home. The patient's symptoms improved while he was in the emergency department prior hospitalizations were reviewed. The patient's EKG was interpreted by me as being nonischemic. The patient's pulse oximetry was interpreted as normal and adequate the patient was discharged with instructions to follow up as an outpatient he did request a albuterol inhaler which I prescribed. Departure Disposition: HOME / SELF CARE / HOMELESS Impression: Primary Impression: Acute allergic reaction Qualified Codes: T78.40XA - Allergy, unspecified, initial encounter Discharge Instructions: Hives, [id number] Referrals: NO PRIMARY CARE PROVIDER (PCP) Prescriptions Albuterol Sulfate (Ventolin Hfa) 90 Mcg Hfa.aer.ad 2 PUFFS INH Q4HPRN PRN for SOB or wheezing, #1 INHALER Prov: NEIL THOMAS MD 04/29/25 Signature Scribe Signature: no scribe Attestation: The note accurately reflects work and decisions made by me.Neil Thomas MD 04/29/25 05:28 NEIL THOMAS MD Apr 29, 2025 03:37
[2025-04-29] MEDS: famotidine/PF 10 mg/ml inj IV ONE (04:05)
[2025-04-29] MEDS: dexamethasone sod phosphate 10mg/ml inj IV STA (04:05)
--- NOTE | 2025-04-29 04:42 | ELECTROCARDIOGRAPH REPORT ---
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
[2025-04-29] MEDS ORDERED: ALBU18HF2 INH (04:52)
[2025-04-29 05:24] VITALS: BP 128/83; PULSE 97; RESP 18; TEMP 97.9; O2SAT 94
== END 2025-04-29 05:27 | disposition home or self-care (01) ==
LOC: ER 03:32
DX: T78.49XA Other allergy, initial encounter (principal); I48.91 Unspecified atrial fibrillation; I10 Essential (primary) hypertension; Z88.6 Allergy status to analgesic agent; Z88.8 Allergy status to other drugs, medicaments and biological substances; Z79.899 Other long term (current) drug therapy; X58.XXXA Exposure to other specified factors, initial encounter
CPT/HCPCS: 93005; 96374; 96375; 99284; J1100; J3490

== ENCOUNTER 2025-05-06 17:27 | Inpatient (IN) | payer MEDICAID ==
[~2025-05-06] VITALS: Ht 182.9 cm; Wt 157.7 kg
[~2025-05-06 17:27] MED LIST changes: +ALBU18HF2 INH
[2025-05-06 17:33] VITALS: PULSE 97; RESP 18; O2SAT 94
--- NOTE | 2025-05-06 17:40 | Physician Documentation ---
History of Present Illness ~ Stated Complaint: ANAPHYLAXIS Time Seen by MD: 17:39 Primary Medical Doctor: no pcp HPI This is a 55-year-old male who presented per EMS after calling 911 for symptoms of anaphylaxis. Evidently, he was working underneath his car earlier today when he developed itching, hives, chest tightness, shortness of breath. He took 50 mg of Benadryl orally. When the ambulance arrived, they gave him 50 mg of Benadryl IV and 0.5 mg of 1:1000 epinephrine IM. On arrival, the patient continued to endorse chest tightness, shortness of breath, difficulty swallowing. He was reporting some improvement. Unknown etiology of his allergic reaction. He does note that he is taking a supplement called Pruffi from [employer]. Evidently, this is for joint pain. Was admitted to this hospital 03/14/25 for anaphylaxis symptoms and ultimately had LLL PNA, afib with RVR, JALIL, possible COPD due to occupational exposure, HTN, RIMMA, obesity. He reports his only prescribed medication is atenolol. Hx diverticulitis with LLQ colostomy after resection. Seen 04/02/25 for weakness and given IV hydration. Seen 04/29/25 for mild allergic reaction and was given decadron and benadryl. Medication Reconciliation Allergies: Coded Allergies: ibuprofen (Verified Allergy, Intermediate, blood in stool, 01/24/19) celecoxib (Verified Allergy, Unknown, blood in stool, 01/24/19) Uncoded Allergies: ONIONS (Allergy, Unknown, 01/24/19) Scheduled Amlodipine Besylate (Amlodipine Besylate), 1 TAB PO DAILY, (Reported) Atenolol (Atenolol), 1 TAB PO DAILY, (Reported) Scheduled PRN Diphenhydramine HCl (Diphenhydramine HCl), 1 CAP PO PRN PRN for itching, (Reported) albuterol inhaler (Pro-Air Inhaler), 1-2 PUFFS PO Q4H PRN for shortness of breath, (Reported) Discontinued Medications Albuterol Sulfate (Ventolin Hfa), 2 PUFFS INH Q4HPRN PRN for SOB or wheezing Discontinued Reason: completed med therapy Amlodipine Besylate (Amlodipine Besylate), 5 MG PO DAILY Discontinued Reason: completed med therapy Atenolol (Atenolol), 50 MG PO DAILY Discontinued Reason: completed med therapy Diphenhydramine Hcl (Benadryl), 1 CAP PO BID PRN for allergies Discontinued Reason: patient no longer taking Famotidine (Famotidine), 20 MG PO BID Discontinued Reason: completed med therapy Past Medical History Past Medical History: Atrial Fibrillation, Hypertension, Diverticulitis Past Surgical History: noncontributory Patient History: FH: CABG (coronary artery bypass surgery) FATHER FH: HTN (hypertension) FH: diabetes mellitus MOTHER FH: prostate cancer GRANDFATHER OR GRANDMOTHER Alcohol Use: None Drug Use: none Lives with: Family Lives In: Home Occupation: retired Review of Systems ROS As stated above in the HPI, otherwise all systems are reviewed and negative. Physical Exam Vital Signs: Heart Rate: 97, Respiratory Rate: 18, Pulse Oximetry: 94 Physical Exam General: Alert, mild distress. HEENT: PERRL, EOMI, no injection, moist mucous membranes. Patent airway with uvula visible posterior midline. Neck: Full range of motion. Respiratory: Lungs clear, no acute distress. Mildly tachypneic. Chest: No accessory muscle use. Cardiovascular: Regular rate and rhythm, no murmurs. Gastrointestinal: Soft, nontender, nondistended. Bowels sounds present. Extremities: Normal range of motion, no deformity. Neurologic: Oriented x4. Psychiatric: Normal mood and affect. Skin: Normal color, warm and dry. No edema, no ecchymosis.Fading hives on abd omen. Progress Progress Note 1740: TAI Crawford at bedside to evaluate, recommends second dose epi 1:1000 0.5 mg IM x 1 and affirms plan for solu-medrol 125 mg IVP. 1800: Farshad Crawford MD evaluated the patient at bedside with a OLIVE Draper. I agree with her treatment plan and recommended repeat dose of IM epinephrine and likely admission to the hospital. Handoff given to Dr. Vallejo for discussion with hospitalist team Results/Orders Reviewed/noted all lab results: Yes Results/Orders Orders - EDUIN VALLEJO MD Hospitalist (05/06/25 18:40) Medications Received in ER Medications (Trade) Dose Ordered Sig/Kimi Route PRN Reason Start Time Stop Time Status Last Admin Dose Admin (SoluMEDROL 125mg inj) 125 mg ONCE ONCE IV 05/06/25 17:40 05/06/25 17:41 DC 05/06/25 18:01 125 MG (Adrenalin inj) 0.5 mg ONCE ONCE IM 05/06/25 17:45 05/06/25 17:46 DC 05/06/25 18:02 0.5 MG Sodium Chloride 1,000 ml @ 1,000 mls/hr ONCE ONCE IV 05/06/25 17:50 05/06/25 18:49 DC 05/06/25 18:02 1,000 MLS/HR (Pepcid IV inj) 20 mg ONCE ONCE IV 05/06/25 18:10 05/06/25 18:11 DC 05/06/25 18:15 20 MG Vital Signs 05/06/25 05/06/25 05/06/25 05/06/25 17:33 17:40 18:07 18:08 Temp 98.5 Pulse 97 93 90 Resp 18 20 15 B/P (MAP) 98/60 95/55 (68) Pulse Ox 94 94 93 O2 Delivery Nasal Cannula* O2 Flow Rate 2 2.0 2.0 FiO2 28 05/06/25 18:25 Temp 98.5 Pulse 88 Resp 17 B/P (MAP) 106/64 (78) Pulse Ox 95 O2 Flow Rate 2.0 FiO2 28 Laboratory Tests Test 05/06/25 17:58 White Blood Count 16.8 H Red Blood Count 4.99 Hemoglobin 15.1 Hematocrit 45.9 Mean Corpuscular Volume 92.1 Mean Corpuscular Hemoglobin 30.2 Mean Corpuscular Hemoglobin Concent 32.8 L Red Cell Distribution Width 15.6 H Platelet Count 355 Mean Platelet Volume 8.6 Neutrophils (%) (Auto) 74.4 Lymphocytes (%) (Auto) 17.3 L Monocytes (%) (Auto) 5.7 Eosinophils (%) (Auto) 1.6 Basophils (%) (Auto) 1.0 Neutrophils # (Auto) 12.5 H Lymphocytes # (Auto) 2.9 Monocytes # (Auto) 1.0 H Eosinophils # (Auto) 0.3 Basophils # (Auto) 0.2 CBC Comment Sodium Level 142 Potassium Level 3.7 Chloride Level 109 H Carbon Dioxide Level 21.1 L Anion Gap 12 Blood Urea Nitrogen 19 H Creatinine 1.68 H Estimated GFR/1.73 m2 43 BUN/Creatinine Ratio 11.3 Glucose Level 122 H Calcium Level 8.3 L Total Bilirubin 0.5 Aspartate Amino Transf (AST/SGOT) 44 H Alanine Aminotransferase (ALT/SGPT) 65 Alkaline Phosphatase 102 Troponin I High Sensitivity 8 Total Protein 7.2 Albumin 3.3 L Globulin 3.9 Albumin/Globulin Ratio 0.8 L Chemistry Comments EKG/XRAY/CT/US/VASC/MRI Chest X-Ray : Additional Comments [facility] [address] [facility], [facility] [id number] DIAGNOSTIC RADIOLOGY Patient: RISSA PORTILLO Medical Record: [id number] ELIZABETH FORT THOMAS : 1970, Age: 55 Sex: Male Location: ER Patient Status: [facility] ER Service Date/Time: 05/06/251810 Ordering Physician: TANIYA DRAPER NP Exam: CHEST,SINGLE VIEW EXAM: DI CHEST,SINGLE VIEW HISTORY: dyspnea, CP TECHNIQUE: 1 view of the chest COMPARISON: DI CHEST,SINGLE VIEW on DOS: 04/02/25 FINDINGS/IMPRESSION: LUNGS: No pleural effusion, consolidation, or pneumothorax MEDIASTINUM: Unremarkable BONES: No acute osseous abnormality OTHER: None Electronically Signed by:BELTRAN DIXON MD Date & Time: 05/06/251818 Dictated by: BELTRAN DIXON MD Dictation date and time: 05/06/251818 Primary Care Provider: NO PRIMARY CARE PROVIDER cc: TANIYA DRAPER UNDERWATER HUNTER ~ Medical Decision Making Differential Dx:Considerations: Include: Anaphylaxis, Angioedema, Bronchospasm, Contact dermatitis, Drug reaction, Hypotension, Latex allergy, Renal failure, Respiratory failure, Shock, Urticaria Differential Diagnosis 55 yr old male with recurrent anaphylaxis of unknown cause. Given second dose of epinephrine upon arrival to ED for hypotension along with one liter NS bolus. Was also given Solu-medrol 125 mg, famotidine 20 mg. Had already received benadyl and first dose epi by EMS. Most Likely Diagnoses Anaphylaxis is the top differential for a patient presenting with acute onset of hives, wheezing, hypotension, itching, chest tightness, and dyspnea. The National [place] of Allergy and Infectious Diseases and the Food Allergy and Anaphylaxis Network clinical criteria specify that involvement of skin/mucosa plus respiratory compromise and hypotension is highly suggestive of anaphylaxis, especially when symptoms develop rapidly after exposure to a likely allergen. Acute urticaria with or without angioedema is also likely, as generalized hives and pruritus may occur with or without airway involvement. The [place] [employer], Asthma, and Immunology notes that acute urticaria can present with angioedema and, if severe, may overlap with anaphylaxis. Acute asthma exacerbation (allergic bronchospasm) may present with wheezing, chest tightness, and dyspnea, but typically lacks hypotension and generalized hives unless triggered by an allergen. DASIA-inhibitorinduced angioedema can cause airway compromise and swelling, but usually does not present with urticaria or hypotension. Mast-cell activation disorder or systemic mastocytosis flare may mimic anaphylaxis, with hives, hypotension, and respiratory symptoms, and should be considered if there is a history of recurrent episodes or systemic symptoms. Anxiety or panic attack with hyperventilation can cause chest tightness, dyspnea, and subjective wheezing, but does not cause hypotension, hives, or pruritus. Most Important Not to Miss Diagnoses Hereditary angioedema (C1-esterase inhibitor deficiency) can cause airway compromise and hypotension, but typically presents without urticaria. It should be ruled out by measuring C4 and C1INH levels if angioedema is present and there is no urticaria. Pulmonary embolism may present with acute dyspnea, chest tightness, and hypotension, but does not cause hives or pruritus. It should be excluded by cl inical risk assessment and imaging if respiratory symptoms predominate. Septic shock can cause hypotension and respiratory distress, but is not associated with hives, pruritus, or wheezing unless there is a concomitant allergic reaction. It should be ruled out by evaluating for infection, organ dysfunction, and laboratory markers. Addendum 7:15 p.m.: Consult: I spoke to the internal medicine service, for admission in the hospital Eduin Vallejo MD Departure Disposition: 09 ADMITTED INPATIENT Admitted to Inpatient Unit: to hospitalist Impression: Primary Impression: Anaphylactic urticaria Referrals: NO PRIMARY CARE PROVIDER (PCP) Critical Care Note Total Time (mins): 30 Critical Care Note The very real possibility of a deterioration of this patient's condition required the highest level of my preparedness for sudden, emergent intervention. I provided critical care services, which included medication orders, frequent reevaluations of the patient's condition and response to treatment, ordering and reviewing test results, and discussing the case with various consultants. Excludes time spent performing separately billable procedures. The critical care time associated with the care of the patient was 30 minutes in management of anaphylaxis. Signature Scribe Signature: x Attestation: The note accurately reflects work and decisions made by me.Taniya Adamson NP 05/06/25 17:48 TANIYA DRAPER NP May 06, 2025 17:40 FARSHAD CRAWFORD MD May 06, 2025 18:50 EDUIN VALLEJO MD May 06, 2025 19:15
[2025-05-06] MEDS: normal saline 1000ml 1,000 ML IV ONE (18:02)
--- NOTE | 2025-05-06 18:09 | ELECTROCARDIOGRAPH REPORT ---
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 Kevin Bach Measurements Intervals [place] Rate: 90 P: -1 MT: 177 QRS: -26 QRSD: 99 T: 37 QT: 384 QTc: 470 Interpretive Statements Sinus rhythm Borderline left axis deviation Abnormal R-wave progression, late transition Electronically Signed On 05-10-2025 21:45:[address] Kevin Bach Please click the below link to view image of tracing.
[2025-05-06] MEDS: famotidine/PF 10 mg/ml inj IV ONE (18:15)
[2025-05-06 18:19] LABS: MEAN PLATELET VOLUME 8.6 FL (7.4-10.4); RED CELL DISTRIBUTION WIDTH 15.6 % (11.5-14.5)
--- NOTE | 2025-05-06 18:22 | RADIOLOGY REPORT ---
EXAM: DI CHEST,SINGLE VIEW HISTORY: dyspnea, CP TECHNIQUE: 1 view of the chest COMPARISON: DI CHEST,SINGLE VIEW on DOS: 04/02/25 FINDINGS/IMPRESSION: LUNGS: No pleural effusion, consolidation, or pneumothorax MEDIASTINUM: Unremarkable BONES: No acute osseous abnormality OTHER: None
[2025-05-06 18:34] LABS: CREATININE 1.68 MG/DL (0.60-1.10); TOTAL CARBON DIOXIDE 21.1 MMOL/L (24-32); eCRCL 55 ML/MIN; eGFR 43 ML/MIN
[2025-05-06] MEDS ORDERED: DIPH25CA52 PO (18:55)
[2025-05-06] MEDS ORDERED: AMLO5TAB16 PO (18:55)
[2025-05-06] MEDS ORDERED: ATEN50TA2 PO (18:55)
[2025-05-06] MEDS ORDERED: ALBU8HFA PO (18:56)
[2025-05-06] MEDS ORDERED: haloperidol lactate 5mg/ml inj IM PRN (19:50)
[2025-05-06] MEDS ORDERED: magnesium hydroxide 30ml (MOM) UD suspension PO PRN (19:50)
[2025-05-06] MEDS ORDERED: magnesium sulf-water 2g/50mL 50 ML IV PRN (19:50)
[2025-05-06] MEDS ORDERED: magnesium sulf-water 4G/100mL 100 ML IV PRN (19:50)
[2025-05-06] MEDS ORDERED: potassium Cl 20 mEq SR tablet PO PRN ×2 (19:50)
[2025-05-06] MEDS ORDERED: magnesium Cl slow-release 64mg tablet PO PRN (19:50)
[2025-05-06] MEDS ORDERED: diazepam inj 5 MG/ML inj. IV SCH (19:50)
[2025-05-06] MEDS ORDERED: potassium Cl 40MEQ/1/2NS 520ml 520 ML IV PRN (19:50)
[2025-05-06] MEDS ORDERED: mag hydrox/Alum hydrox/simeth 30ml oral suspension PO PRN (19:50)
[2025-05-06] MEDS ORDERED: dextrose 50%-water 50ml dispensing syringe IV PRN (19:50)
[2025-05-06] MEDS ORDERED: morphine 4 MG/ML inj SYRINge IV PRN (19:50)
[2025-05-06] MEDS: K and/or MAG REPLACEMENT MC SCH (20:00)
[2025-05-06] MEDS: docusate sod 100mg capsule PO SCH (20:00)
--- NOTE | 2025-05-06 20:01 | HISTORY AND PHYSICAL-Residence ---
History & Physical Providers to CC Resident Creating Document: FERNIE MUNSON, RES CC: LOVE HOLGUIN MD ~ History of Present Illness Primary Medical Doctor: no pcp Reason for Admit\Complaint: ITCHING, ANGIOEDEMA History of Present Illness A 55-year-old male with PMH of HTN, anaphylaxis to unknown substance, diverticulitis s/p subtotal colectomy with diversion colostomy presented to the ED in view of itching and swelling of mouth and tongue. Patient states that he started to have intense itching from head to toe associated with swelling of mouth and tongue and difficulty of breathing while he was working on a vehicle this morning. 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 Patient has taken to Benadryl capsules that were given to him at the time of discharge on 03/14/2025 which did not improve his symptoms. Patient had about five similar episodes over the period of one month. Patient was recently admitted in the hospital on 03/14/2025 for similar complaints, treated for anaphylaxis and pneumonia. Patient also endorses dizziness described as spinning of the room associated with nausea and intermittent congestion. Patient denies fullness of the ear. Patient states that the dizziness is more prominent when he stands up too quick and has to sit down for it to get better. Patient denies LOC. Patient describes that he had a history of loss of consciousness after an episode of vomitings in the past when he has taken amlodipine and atenolol it would same time, when his blood pressure dropped down to 60s. This episode was attributed to taking too antihypertensive medications at the same time. Allergies: Coded Allergies: ibuprofen (Verified Allergy, Intermediate, blood in stool, 01/24/19) celecoxib (Verified Allergy, Unknown, blood in stool, 01/24/19) Uncoded Allergies: ONIONS (Allergy, Unknown, 01/24/19) Home Medications Home Medications Active Reported Pro-Air Inhaler (Albuterol) 8.5 Gm Inhaler 1-2 Puffs PO Q4H PRN Diphenhydramine HCl 25 Mg Capsule 1 Cap PO PRN PRN Amlodipine Besylate 5 Mg Tablet 1 Tab PO DAILY Atenolol 50 Mg Tablet 1 Tab PO DAILY Past Medical History Past Medical History HTN Anaphylaxis Possible COPD Pneumonia Diverticulitis Past Surgical History Surgical History Comment Diverticulitis status post subtotal colectomy with diversion colostomy by Dr. Saleh three years ago Patient had perforated colon at this time. Family History Family History: FH: CABG (coronary artery bypass surgery) FATHER FH: HTN (hypertension) FH: diabetes mellitus MOTHER FH: prostate cancer GRANDFATHER OR GRANDMOTHER Past Social History Social History Comment Former tobacco chewing, quit chewing tobacco Used to drink 2-3 drinks a day until a month ago, consumes two drinks occasionally maybe a couple of times in the week. 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 No Chest pressure, chest discomfort, palpitations, syncope, lower extremity edema, paroxysmal nocturnal dyspnea Respiratory: Shortness of breath, no cough and hemoptysis Gastrointestinal: Normal appetite. No nausea, vomiting, diarrhea, constipation, hematemesis, abdominal pain, bloating, melena or fresh blood Musculoskeletal: No deformity Integumentary: No change in skin, hair, nails. No swelling, bruising, abrasions Neurologic: No headache, neck pain, numbness or tingling of the extremities, weakness Psychiatric: No delusions, depression, loss of interest in normal activity or change in sleep pattern, hallucinations, suicidal ideations Endocrine: No fatigue, weakness, polydipsia, polyuria, change in appetite, heat or cold intolerance, sweating, dry skin Exam Vitals: Vital Signs Date Time Temp Pulse Resp B/P (MAP) Pulse Ox O2 Delivery O2 Flow Rate FiO2 05/06/25 18:25 98.5 88 17 106/64 (78) 95 2.0 28 05/06/25 17:33 Nasal Cannula* General: General: Morbidly obese middle-aged man, Alert, awake, oriented, not in acute distress HEENT: Swollen right eyelid, swollen upper lip PERRLA, no icterus, pallor, lymphadenopathy, carotid bruit Respiratory system: Bilateral vesicular breath sounds heard, no adventitious breath sounds CVS: S1-S2 heard, no murmurs/rubs/gallop GI: A colostomy bag is present on the left side, multiple surgical scars present in the abdomen, distended abdomen Soft, nontender, no organomegaly, no guarding/rigidity, bowel sounds present Neuro: No focal neurological deficits present Extremities: No edema cyanosis clubbing Musculoskeletal: No deformities Skin: Warm and dry Psych: Normal mood and affect Diagnostic Data Last Recorded Lab Results: 05/07/[id number]/25442 Advance Care Planning Advanced Care plannin - 30 Minutes (I spent 20 minutes discussing various resuscitative measures and the patient decided to be full code) Additional Plan Assessment: 55-year-old male with PMH of HTN, diverticulitis s/p subtotal colectomy with diverting colostomy presented to the ED in view of itching of the skin from head to toe, swelling of the tongue and throat. Patient is admitted for the evaluation and management of anaphylactic shock Plan: Anaphylactic shock 2/2 unknown source Unidentified allergic source Leukocytosis with neutrophilic predominance Similar episodes in the past Normal eosinophil count, chest x-ray: No significant acute cardiopulmonary disease Patient received two doses of IM epinephrine and Solu-Medrol 125 mg in the ED IM epinephrine 0.3 mg and Benadryl 25 mg q.6h p.r.n. for anaphylaxis Continue IV fluids at 100 cc/hour Patient had soft blood pressures in the ED Follow up with urinalysis and U tox, TSH Continue to monitor telemetry, vitals Dizziness, probably vertigo Rule out orthostatic syncope Follow up with orthostatic vitals Meclizine 25 mg PO TID Patient might benefit from outpatient JALIL on CKD stage IIIB probably secondary to renal tubular stasis Baseline creatinine: 1.20 - 1.63 by EGFR: 43 Continue IV fluids at 100 cc/hour Continue to monitor BMP Paroxysmal AFib [id number]: 1 EKG: Normal sinus rhythm Currently in sinus rhythm and rate controlled HTN Hold antihypertensives in view of soft blood pressures Possible sleep apnea Morbid obesity Patient benefits from sleep studies as outpatient ? COPD Patient has no underlying history of asthma or smoking Patient does not have diagnosis from PFT tests DuoNeb p.r.n. 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 for anaphylaxis Continue IV fluids at 100 cc/hour Follow up with urinalysis and U tox, TSH Continue to monitor telemetry, vitals IM 3 FERNIE MUNSON, RES May 06, 2025 20:01 LOVE HOLGUIN MD May 07, 2025 15:34
[2025-05-06] MEDS: ondansetron/PF 4mg/2ml inj IV PRN (20:18)
[2025-05-06] MEDS: normal saline 1000ml 1,000 ML IV SCH (20:23)
[2025-05-06] MEDS ORDERED: diazepam inj 5 MG/ML inj. IV PRN (20:31)
[2025-05-06] MEDS: thiamine 100mg/ml 2ml inj. IV SCH (21:12)
[2025-05-06 21:26] LABS: LEUKOCYTE ESTERASE ,URINE NEGATIVE (Neg); NITRITES, URINE NEGATIVE (Neg); OCCULT BLOOD,URINE NEGATIVE (Neg)
[2025-05-06 21:31] LABS: UA COLLECTION TYPE CLN CATCH MIDSTREAM
[2025-05-06 21:33] LABS: FINE GRANULAR CAST 0-3 /LPF (NEGATIVE); HYALINE CASTS >30 /LPF (NEGATIVE); SQUAMOUS EPITHELIAL CELL,UR NONE SEEN /LPF (FEW)
[2025-05-06 21:43] LABS: URINE AMPHETAMINE SCREEN NEGATIVE (Neg); URINE BARBITUATE SCREEN NEGATIVE (Neg); URINE BENZODIAZEPINES SCREEN NEGATIVE (Neg); URINE CANNABINOID SCREEN NEGATIVE (Neg); URINE COCAINE SCREEN NEGATIVE (Neg); URINE METHADONE SCREEN NEGATIVE (Neg); URINE OPIATE SCREEN NEGATIVE (Neg); URINE PHENCYCLIDINE SCREEN NEGATIVE (Neg)
[2025-05-06 23:50] VITALS: BP 133/61; PULSE 85; RESP 16; TEMP 97; O2SAT 96
[2025-05-07] VITALS (15 sets, daily range): BP systolic 123–160; BP diastolic 63–76; PULSE 77–105; RESP 14–20; TEMP 96.3–98.3; O2SAT 93–98
[2025-05-07] MEDS: methylPREDNISolone sod succ/PF 40mg inj. IV SCH (01:22)
[2025-05-07] MEDS: HYDROcodone/acetaminophen 5mg/325mg tablet PO PRN (04:54)
[2025-05-07] MEDS: ipratropium/albuterol 3ml nebule NEB PRN (05:35)
[2025-05-07 06:10] LABS: MEAN PLATELET VOLUME 8.9 FL (7.4-10.4); RED CELL DISTRIBUTION WIDTH 15.3 % (11.5-14.5)
[2025-05-07 06:50] LABS: CREATININE 1.21 MG/DL (0.60-1.10); TOTAL CARBON DIOXIDE 20.9 MMOL/L (24-32); eCRCL 77 ML/MIN; eGFR 62 ML/MIN
[2025-05-07] MEDS: multivitamins, therapeutics tablet PO SCH (09:34)
[2025-05-07] MEDS: folic acid 1mg/0.2ml inj IV SCH (09:42)
[2025-05-07] MEDS ORDERED: DIPH25CA52 PO (10:40)
[2025-05-07] MEDS ORDERED: dextrose 50%-water 50ml dispensing syringe IV PRN ×2 (10:45)
[2025-05-07] MEDS ORDERED: glucagon, human recombinant 1mg kit SUBCUT PRN (10:45)
[2025-05-07] MEDS ORDERED: DEXTROSE 15 GM of carb/4 tabs (each vial/BOTTLE has 4 tablets) PO PRN ×2 (10:45)
[2025-05-07] MEDS: INSULIN LISPRO 100 UNIT/ML INSULN.PEN MULTI-DOSE SQ SCH (13:44)
--- NOTE | 2025-05-07 19:24 | PROGRESS NOTE ---
Daily Progress Note Providers to CC ~ Antibiotic Timeout Antibiotic Ordered?: No Subjective The patient endorses resolution of the swelling of his throat and mouth however the patient is complaining of some shortness of breath- a nebulizer treatments are ordered Objective Vital Signs Date Time Temp Pulse Resp B/P (MAP) Pulse Ox O2 Delivery O2 Flow Rate FiO2 05/07/25 18:30 104 05/07/25 18:00 98.3 14 137/63 (87) 93 Room Air 05/07/25 17:24 0 21 Result Diagram: 05/07/25 0443 05/07/25 0443 Gen. No acute distress alert and oriented 4 Lungs clear to ascultation bilaterally, no wheezes rales or rhonchi appreciated Heart normal sinus rhythm no murmurs rubs or clicks noted Abdomen soft nontender bowel sounds are normoactive Lower extremities no clubbing cyanosis, nor edema appreciated bilaterally Problem\Assessment\Plan Anaphylactic shock 2/2 unknown source Unidentified allergic source Leukocytosis with neutrophilic predominance Similar episodes in the past Normal eosinophil count, chest x-ray: No significant acute cardiopulmonary disease Patient received two doses of IM epinephrine and Solu-Medrol 125 mg in the ED IM epinephrine 0.3 mg and Benadryl 25 mg q.6h p.r.n. 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 Dizziness, probably vertigo Rule out orthostatic syncope Follow up with orthostatic vitals Meclizine 25 mg PO TID Patient might benefit from outpatient 05/07 no longer dizzy continue to monitor JALIL on CKD stage IIIB possibly secondary to renal tubular stasis Baseline creatinine: 1.20 - 1.63 by EGFR: 43 Continue IV fluids at 100 cc/hour Continue to monitor BMP 05/07 renal function improved significantly continue to monitor Paroxysmal AFib [id number]: 1 EKG: Normal sinus rhythm Currently in sinus rhythm and rate controlled HTN Hold antihypertensives in view of soft blood pressures 05/07 blood pressure is stable currently Possible sleep apnea Morbid obesity Patient benefits from sleep studies as outpatient ? COPD Patient has no underlying history of asthma or smoking Patient does not have diagnosis from PFT tests DuoNeb p.r.n. 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
[2025-05-08 05:38] LABS: MEAN PLATELET VOLUME 8.7 FL (7.4-10.4); RED CELL DISTRIBUTION WIDTH 15.4 % (11.5-14.5)
[2025-05-08 05:49] LABS: CREATININE 0.89 MG/DL (0.60-1.10); TOTAL CARBON DIOXIDE 22.3 MMOL/L (24-32); eCRCL 104 ML/MIN; eGFR 89 ML/MIN
[2025-05-08 06:00] VITALS: BP 136/69; PULSE 85; RESP 16; TEMP 97.4; O2SAT 97
[2025-05-08 08:00] VITALS: BP_SYST 125; BP_SYST 126; BP_SYST 130; BP_DIAS 71; BP_DIAS 73; BP_DIAS 81; PULSE 83; PULSE 87; PULSE 92
[2025-05-08 08:22] VITALS: PULSE 80; RESP 16; O2SAT 95
[2025-05-08 10:00] VITALS: BP_SYST 135; BP_SYST 136; BP_DIAS 69; BP_DIAS 83; PULSE 85; PULSE 93; RESP 14; RESP 16; TEMP 97.3; TEMP 97.4; O2SAT 96; O2SAT 97
[2025-05-08] MEDS ORDERED: PRED20TA PO (11:58)
[2025-05-08] MEDS ORDERED: MECL-226 PO (11:58)
[2025-05-08 13:40] VITALS: RESP 15
--- NOTE | 2025-05-08 21:36 | DISCHARGE SUMMARY ---
Discharge Summary Providers to CC ~ Discharge Summary Admission Diagnosis: ANAPHYLACTIC SHOCK Hospital Course DATE OF ADMISSION: 05/06/2025 DATE OF DISCHARGE: 05/08/2025 Discharge Diagnosis\\Comment: Anaphylactic shock, with secondary leukemoid reaction, vertigo, acute kidney injury possibly secondary to renal tubular stasis, paroxysmal atrial fibrillation, hypertension, probable sleep apnea and morbid obesity Operations\\Procedures: None Consultants: None Complications: None Condition on DC: Stable New Medications: Prednisone* (Prednisone*) 20 Mg Tablet 3 TAB PO DAILY, #15 TAB 1 Refill Meclizine HCl (Meclizine HCl) 12.5 Mg Tablet 25 MG PO TID PRN for dizziness/vertigo, #30 TAB Continued Medications: albuterol inhaler (Pro-Air Inhaler) 8.5 Gm Inhaler 1-2 PUFFS PO Q4H PRN for shortness of breath, #1 INH Amlodipine Besylate (Amlodipine Besylate) 5 Mg Tablet 1 TAB PO DAILY Atenolol (Atenolol) 50 Mg Tablet 1 TAB PO DAILY Diphenhydramine HCl (Diphenhydramine HCl) 25 Mg Capsule 1 CAP PO PRN PRN for itching, #30 CAP 2 Refills (This prescription has been renewed) Discharge Summary: The patient was admitted by resident physician ANTOINETTE Kuo , under the supervision of LOVE Rider MD with the following HPI:"A 55-year-old male with PMH of HTN, anaphylaxis to unknown substance, diverticulitis s/p subtotal colectomy with diversion colostomy presented to the ED in view of itching and swelling of mouth and tongue. Patient states that he started to have intense itching from head to toe associated with swelling of mouth and tongue and difficulty of breathing while he was working on a vehicle this morning. 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 Patient has taken to Benadryl capsules that were given to him at the time of discharge on 03/14/2025 which did not improve his symptoms. Patient had about five similar episodes over the period of one month. Patient was recently admitted in the hospital on 03/14/2025 for similar complaints, treated for anaphylaxis and pneumonia. Patient also endorses dizziness described as spinning of the room associated with nausea and intermittent congestion. Patient denies fullness of the ear. Patient states that the dizziness is more prominent when he stands up too quick and has to sit down for it to get better. Patient denies LOC. Patient describes that he had a history of loss of consciousness after an epi sode of vomitings in the past when he has taken amlodipine and atenolol it would same time, when his blood pressure dropped down to 60s. This episode was attributed to taking too antihypertensive medications at the same time." The patient had received two doses of epinephrine IM and IV Solu-Medrol and the patient was on IV Solu-Medrol during hospitalization and IV Benadryl his sy mptoms improved to the point where they essentially resolved on the morning of the the patient is awaiting for an appointment to establish care with a primary care provider in [facility] to get a referral to an steamer operator. I did discharge the patient with a refill Benadryl as well as prednisone 20 mg tablets I did inform him he could taper down and due to 60 mg for one day and then 40 mg for one day 20 mg for one day I did give him extra tablets though and informed him that he could take three tablets at the onset of symptoms in regards to anaphylaxis including swelling of his face and tongue and lips to hopefully avoid full anaphylactic reaction. His insurance will only cover an EpiPen if it is written by the primary care provider enough the hospital and thus I thought it was prudent for the patient to have prednisone available. The patient has a vertigo symptoms and took meclizine PRN. The patient has a history of hypertension in his blood pressure was controlled with the vast majority of his hospitalization in his to continue his atenolol and amlodipine The patient has a acute kidney injury with a creatinine of 1.68 on admission with IV fluid resuscitation this resolved and was 0.89 on the day discharge. Gen. No acute distress alert and oriented 4 Lungs clear to ascultation bilaterally, no wheezes rales or rhonchi appreciated Heart normal sinus rhythm no murmurs rubs or clicks noted Abdomen soft nontender bowel sounds are normoactive Lower extremities no clubbing cyanosis, nor edema appreciated bilaterally The patient felt ready to be discharged and was medically cleared to be discharged on 05/08/2025 The patient was seen and evaluated on day of discharge. Time spent on discharge 35 minutes *Problems/Diagnosis: (1) Anaphylactic urticaria Status: Acute Total Time Spent on D/C: > 30 Minutes Date of Service: May 08, 2025 Billing Provider: SAMIR JEROME DO Common Visit Codes: [id number]/OBS DISCH DAY >30min SAMIR JEROME DO May 08, 2025 21:35
== END 2025-05-08 13:42 | disposition home or self-care (01) | DRG 811 ==
LOC: ER 17:28 → ED HOLD 20:39 → EDBEDREQ 23:38 → ORTHO 4S 23:50
PROVIDERS: ADMIT Internal Medicine Critical Care Medicine; ATTEND Family Medicine
DX: T78.2XXA Anaphylactic shock, unspecified, initial encounter (principal); N17.0 Acute kidney failure with tubular necrosis; R42 Dizziness and giddiness; N18.32 Chronic kidney disease, stage 3b; J44.9 Chronic obstructive pulmonary disease, unspecified; D72.823 Leukemoid reaction; I48.0 Paroxysmal atrial fibrillation; G47.33 Obstructive sleep apnea (adult) (pediatric); B02.9 Zoster without complications; I12.9 Hypertensive chronic kidney disease with stage 1 through stage 4 chronic kidney disease, or unspecified chronic kidney disease; E66.01 Morbid (severe) obesity due to excess calories; Z68.42 Body mass index [BMI] 45.0-49.9, adult; Z83.3 Family history of diabetes mellitus; Z80.42 Family history of malignant neoplasm of prostate; Z82.49 Family history of ischemic heart disease and other diseases of the circulatory system; Z88.6 Allergy status to analgesic agent; Z88.8 Allergy status to other drugs, medicaments and biological substances; Z87.891 Personal history of nicotine dependence
CPT/HCPCS: 36415; 71045; 80048; 80053; 80305; 81001; 82948; 83605; 83735; 84443; 84484; 85025; 87040; 87081; 93005; 94640; 94760; 96365; 96372; 96375; 97116; 97162; 99291; G0378; J0169; J1815; J2405; J2919; J3411; J3490; J7030; J8597